=== PATIENT | male | born 1955 | race Caucasian/White ===

== ENCOUNTER 2017-02-02 12:26 | Inpatient (IN) | payer MEDICAID ==
--- NOTE | 2017-02-02 12:01 | GHP ---
[f rep st] HISTORY AND PHYSICAL DATE OF ADMISSION: 02/02/2017 CURRENT COMPLAINT: Right knee pain. HISTORY OF PRESENT ILLNESS: The patient is a 61-year-old male, who 2 months ago had previously under gone a right total knee arthroplasty. Had developed a small stitch abscess that continued to progres s despite antibiotic treatment. He underwent a formal irrigation and debridement on Sunday in [place], [place], was found to have a large hole in his patellar tendon and purulence. He therefore had an i nfected total knee replacement that went down onto the metal. After the formal washout, it was decid ed that he should undergo formal debridement with removal of his prosthesis and placement of cement s pacers. ALLERGIES: He is allergic to penicillin. CURRENT MEDICATIONS: Include allopurinol, cyclobenzaprine, levothyroxine, metformin, pantoprazole, r osuvastatin, sucralfate, tamsulosin. PAST MEDICAL HISTORY: Include BPH, gout, hypothyroidism, high cholesterol, and type 2 diabetes. PAST SURGICAL HISTORY: Include a right total knee replacement with subsequent I and D, as well as a left shoulder lipoma excision, spine surgery, and a right knee arthroscopy. PHYSICAL EXAMINATION: HEENT: Pupils are equal, round, reactive to light. CHEST: Clear to ausculta tion. HEART: Regular rate and rhythm. ABDOMEN: Soft and nontender. EXTREMITIES: Right lower ext remity reveals warmth into the right knee with a sewn incision on the anterior portion of the right k nee. LABORATORY DATA: Lab tests revealed gram-positive rods from his cultures on Sunday with rare gram-po sitive cocci. No cultures and sensitivities are available at this time. ASSESSMENT AND PLAN: The patient is status post right total knee replacement infection. The plan is to take him to the operating room, where he is to undergo a right total knee replacement excision wi placement of cement spacers. /[id number]/MODL
[2017-02-02] MEDS ORDERED: ROPIVACAINE 0.2% 80 MG, EPINEPHrine 0.2 MG, KETOROLAC TROMETHAMINE 30 MG, morphINE 10 M... IU ONE (12:57)
[2017-02-02] MEDS ORDERED: ACETAMINOPHEN 500 MG TAB PO ONE (12:57)
[2017-02-02] MEDS ORDERED: CLINDAMYCIN 900 MG/DEXTROSE 50 ML IV ONE (12:57)
[2017-02-02] MEDS ORDERED: TRANEXAMIC ACID 3,000 MG in NS 50 ML IRR ONE (12:57)
[2017-02-02] MEDS ORDERED: LR 1,000 ML IV SCH ×2 (13:00→18:30)
[2017-02-02] MEDS ORDERED: LR 1,000 ML IV ONE (13:53)
[2017-02-02] MEDS ORDERED: POLYMYXIN B SULFATE 500,000 UNIT/10 ML SYR IRR ONE ×3 (14:20→17:24)
[2017-02-02] MEDS ORDERED: BACITRACIN 50,000 UNITS/10 ML SYR IRR ONE ×3 (14:20→17:24)
[2017-02-02] MEDS ORDERED: MIDAZOLAM 2 MG/2 ML VIAL IVP ONE (14:26)
--- NOTE | 2017-02-02 14:30 | PDANEPAE ---
ANE Past Medical History - Cardiovascular History Hx Hypertension: No Hx Arrhythmias: No Hx Chest Pain: No Hx Coronary Artery / Peripheral Vascular Disease: No Hx CHF / Valvular Disease: No Hx Palpitations: No - Pulmonary History Hx COPD: No Hx Asthma/Reactive Airway Disease: No Hx Recent Upper Respiratory Infection: No Hx Oxygen in Use at Home: No Hx Sleep Apnea: Yes Sleep Apnea Screening Result - Last Documented: Positive - Neurologic History Hx Cerebrovascular Accident: No Hx Seizures: No Hx Dementia: No - Endocrine History Hx Diabetes: Yes Endocrine History Comment: DM - METFORMIN. HYPOTHYROID - LEVOTHYROXINE - Renal History Hx Renal Disorders: No - Liver History Hx Hepatic Disorders: No - Neurological & Psychiatric Hx Hx Neurological and Psychiatric Disorders: No - Cancer History Hx Cancer: No - Congenital Disorder History Hx Congenital Disorders: No - GI History GERD: no Hx Gastrointestinal Disorders: No - Other Health History Other Health History: NEG - Chronic Pain History Chronic Pain: Yes (R KNEE) - Surgical History Prior Surgeries: 10/30/2016 R TKA IN [place]. 01/29/2017 I & D R KNEE IN [place]. LUMBAR SURGERY. LIPOMA L SHOULDER. R KNEE SURG ANE Review of Systems Review of Systems: - Exercise capacity METS (RN): 4 METS ANE Patient History - Allergies Allergies/Adverse Reactions: Penicillins Allergy (Severe, Verified 02/01/17 14:36) SWELLING & DIFF BREATHING - Home Medications Home Medications: Allopurinol [Allopurinol 300 MG (RX)] 300 mg PO BID PRN 02/02/17 [Last Taken Unknown] Cyclobenzaprine [Cyclobenzaprine HCl] 5 mg PO Q6 PRN 02/02/17 [Last Taken Unknown] HYDROmorphone HCL [Dilaudid Inj 2 mg/ml (*)] 2 mg IJ Q4 PRN 02/02/17 [Last Taken Unknown] Levothyroxine Sodium 25 mcg PO DAILY 02/02/17 [Last Taken Unknown] Magnesium Hydroxide [Milk of Magnesia] 30 ml PO DAILY PRN 02/02/17 [Last Taken Unknown] Pantoprazole Sodium [Protonix 40mg (*)] 40 mg PO BID 02/02/17 [Last Taken Unknown] Rosuvastatin Calcium [Crestor] 40 mg PO DAILY 02/02/17 [Last Taken Unknown] Sucralfate [Carafate 1 GM (*)] 1 gm PO ACHS 02/02/17 [Last Taken Unknown] Tamsulosin HCl [Flomax 0.4 MG (*)] 0.4 mg PO DAILY 02/02/17 [Last Taken Unknown] diphenhydrAMINE HCL [Diphen] 50 mg PO Q4 PRN 02/02/17 [Last Taken Unknown] metFORMIN HCL [Metformin HCl ER] 500 mg PO DAILY 02/02/17 [Last Taken Unknown] - NPO status NPO Since - Liquids (Date): 02/02/17 NPO Since - Liquids (Time): 00:00 NPO Since - Solids (Date): 02/02/17 NPO Since - Solids (Time): 00:00 - Anes Hx Anes Hx: no prior problems - Smoking Hx Smoking Status: Never smoked Marijuana use: Yes - Alcohol Use Alcohol Use: None - Family Anes Hx Family Hx Anesthesia Complications: NEG ANE Labs/Vital Signs - Labs Result Diagrams: 02/02/17 14:18 - Vital Signs Blood Pressure: 154/88 Heart Rate: 98 Respiratory Rate: 20 O2 Sat (%): 3 Height: 180.34 cm Weight: 120.202 kg ANE Physical Exam - Airway Neck exam: FROM Mallampati Score: Class 3 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
[2017-02-02 14:43] LABS: ANION GAP 8 mEq/L (8-16); CALCIUM 8.5 mg/dL (8.5-10.4); CARBON DIOXIDE 28 mEq/l (22-31); CHLORIDE 97 mEq/L (97-110); CREATININE 0.7 mg/dL (0.7-1.3); GLOMERULAR FILTRATION RATE > 60; GLUCOSE 92 mg/dL (70-100); POTASSIUM 4.1 mEq/L (3.5-5.2); SODIUM 133 mEq/L (134-144)
[2017-02-02] MEDS ORDERED: BUPIVACAINE/EPI 0.5% 30 ML SDV ONE (14:44)
[2017-02-02] MEDS ORDERED: LIDOCAINE 2% 100 MG/5 ML SYR ONE (14:45)
[2017-02-02] MEDS ORDERED: ROCURONIUM 50 MG/5 ML VIAL ONE (14:45)
[2017-02-02] MEDS ORDERED: fentaNYL 100 MCG/2 ML INJ ONE ×3 (14:45→19:32)
[2017-02-02] MEDS ORDERED: PROPOFOL 200 MG/20 ML VIAL ONE (14:46)
[2017-02-02] MEDS ORDERED: LIDO/EPI 2% **for epidural** 20 ML SDV ONE (14:47)
[2017-02-02] MEDS ORDERED: ONDANSETRON 4 MG/2 ML VIAL ONE ×2 (14:53→18:47)
[2017-02-02] MEDS ORDERED: METHYLENE BLUE 0.5% 50 MG/10 ML AMP ONE (16:04)
[2017-02-02] MEDS ORDERED: NALOXONE HCL 0.4 MG/ML INJ IVP PRN (17:33)
[2017-02-02] MEDS ORDERED: ONDANSETRON 4 MG/2 ML VIAL IVP PRN (17:33)
[2017-02-02] MEDS ORDERED: ENALAPRILAT DIHYDRATE 1.25 MG/ML VIAL IVP PRN (17:33)
[2017-02-02] MEDS ORDERED: LR 500 ML IV PRN (17:33)
[2017-02-02] MEDS ORDERED: PROMETHAZINE HCL 25 MG/ML INJ IVP PRN (17:33)
[2017-02-02] MEDS ORDERED: OXYCODONE/APAP 5/325 TAB PO PRN (17:33)
[2017-02-02] MEDS ORDERED: HYDROCODONE/APAP 5/325 TAB PO PRN (17:33)
[2017-02-02] MEDS ORDERED: HYDROmorphONE/DILAUDID 1 MG/ML INJ IVP PRN (17:33)
[2017-02-02] MEDS ORDERED: MEPERIDINE 25 MG/ML SYR IVP PRN (17:33)
[2017-02-02] MEDS ORDERED: LABETALOL HCL 50 MG/10 ML SYR IVP PRN (17:33)
[2017-02-02] MEDS ORDERED: CYCLOBENZAPRINE 5 MG PO PRN (18:28)
[2017-02-02] MEDS ORDERED: ALLOPURINOL 300 MG TAB PO PRN (18:28)
[2017-02-02] MEDS ORDERED: DIPHENHYDRAMINE HCL 50 MG PO PRN (18:28)
--- NOTE | 2017-02-02 18:28 | POSTOPPROG ---
Post Op Note Date of Operation: 02/02/17 Surgeon: Maru Linder Director Of Marketing: roz Anesthesiologist: silvano Anesthesia: GET(General Endotracheal) Pre-op Diagnosis: r tkr infection Procedure: r tkr removal with spacer placement Inf/Abcess present in the surg proc area at time of surgery?: Yes Depth: Deep Incisional (Fascial) EBL: 100-500
[2017-02-02] MEDS ORDERED: BISACODYL 10 MG SUPP PR PRN (18:29)
[2017-02-02] MEDS ORDERED: MAGNESIUM HYDROXIDE 30 ML UDCUP PO PRN (18:29)
[2017-02-02] MEDS ORDERED: DIPHENOXYLATE/ATROPINE LOMOTIL 1 TAB PO PRN (18:29)
[2017-02-02] MEDS ORDERED: traMADol 50 MG TAB PO PRN (18:29)
[2017-02-02] MEDS ORDERED: PROMETHAZINE HCL 25 MG SUPPR PR PRN (18:29)
[2017-02-02] MEDS ORDERED: diphenhydrAMINE 25 MG CAP PO PRN (18:29)
[2017-02-02] MEDS ORDERED: LACTULOSE 20 GM/30 ML UDCUP PO PRN (18:29)
[2017-02-02] MEDS ORDERED: METOCLOPRAMIDE 10 MG/2 ML VIAL IVP PRN (18:29)
[2017-02-02] MEDS ORDERED: TAPENTADOL HCL 50 MG TAB PO PRN (18:29)
--- NOTE | 2017-02-02 18:40 | POSTANESTH ---
Post Anesthetic Evaluation Cardiovascular Status: Similar to Pre-Op Cond Respiratory Status: Similar to Pre-op Cond. Level of Consciousness/Mental Status: Can Participate in Eval, Alert and Oriented Pain Control: Adequate, Prn Tx Ordered Nausea/Vomiting Control: Adequate, Prn Tx Ordered Complications Possibly Related to Anesthesia: None Noted
[2017-02-02] MEDS ORDERED: METOCLOPRAMIDE 10 MG/2 ML VIAL ONE ×2 (18:47→19:18)
[2017-02-02] MEDS ORDERED: PROMETHAZINE HCL 25 MG/ML INJ ONE (19:24)
[2017-02-02] MEDS: fentaNYL 100 MCG/2 ML INJ IVP PRN ×2 (19:32→19:57)
--- NOTE | 2017-02-02 20:03 | GOP ---
[f rep st] OPERATIVE REPORT DATE OF OPERATION: 02/02/2017 SURGEON: Maru Linder MD SPOOL FIXER: Latrell Ang, certified P.A., whose presence was medically necessary. ANESTHESIA: Endotracheal intubation. PREOPERATIVE DIAGNOSIS: Right total knee replacement infection. POSTOPERATIVE DIAGNOSIS: Right total knee replacement infection. PROCEDURE PERFORMED: Right total knee replacement removal with placement of antibiotic cement spacer s. FINDINGS: DESCRIPTION OF PROCEDURE: Patient brought to the operating room after the right side had been identi fied as the correct side by the patient, nurse and physician. Once in the operating room, he was enedelia paty under general anesthesia using endotracheal intubation after an adductor nerve block had been enedelia paty. A tourniquet was placed around the upper portion of the right thigh, and the sutures in the ski n were removed from the knee. The right lower extremity was then sterilely prepped and draped in usu al fashion using GSI solution. Once prepped and draped, the leg was elevated for 2 minutes, the tour niquet was inflated to 250 mmHg. Sharp and blunt dissection was carried down through the skin and subcutaneous layers with the sutures cut, allowing the tissue to open up. The same was performed for the extensor mechanism. The incisi on was carried more proximally in order to gain further access to the lateral portion of the knee. A n ultrasonic knife was used to remove cement from the undersurface of the femoral component, as well as using a flexible osteotome. Once an adequate amount had been removed, the femoral component was a ble to be removed. The remainder of the cement against the bone was also removed using a combination of rongeur and pickups. Attention was then turned to the tibia, which also had the cement mantle re moved using ultrasonic knife and flexible osteotomes until the tibial component could be removed. Ag ain, excess cement was removed using combination of rongeur and pickups. Both the femur and the tibia were each irrigated thoroughly with pulsatile lavage using 1 L of antibi otic solution for each of them. Trial spacers were put into place, noted to fit securely. Therefore , cement was mixed with methylene blue added to it, in order to aid in its removal at his next surger y. Cement was placed on the proximal portion of the tibia and a size large cement tibial spacer was put into place. Cement was then placed on the end of the femur, and a size large cement spacer was p laced on the femoral component. The knee was brought to full extension in order to pressurize the ce ment mantle. Yet another liter of antibiotic solution was used to irrigate the medial and lateral gu tter and the soft tissue associated with the knee using pulsatile lavage. Once completed, the tourniquet was deflated at 90 minutes. The leg was brought to 20 degrees of flex ion. An 0 Vicryl suture was used to close the extensor mechanisms using a hkvqpu-uf-lwrtl type stitc h with the hole in the patellar tendon also closed using a vlyrqe-or-uwiym type stitch. Then, 0 Vicr yl and 2-0 Vicryl suture were used for the subcutaneous layers. Tranexamic acid had been irrigated i nto the intra-articular portion of the knee, and the skin was closed using 2-0 nylon suture in a vert ical mattress type stitch. The wound was dressed with Xeroform, 4 x 4, wrapped in Kerlix. Leg was c ompletely undraped in the operating room, tourniquet removed from the thigh, and an Ramana wrap placed a round the knee. He had a knee immobilizer locked at 0 degrees placed on his right lower extremity. He was then woken up, extubated, transferred onto a stretcher, and sent to recovery room in [facility]. TOURNIQUET TIME: 90 minutes. INDICATION FOR SURGERY: A 61-year-old male, who 2 months ago had undergone a right total knee arthro plasty. A month out from surgery, he appeared to have a small stitch that was spitting out from the wound. He was placed on antibiotics. Two weeks later, antibiotics were changed to Levaquin because he had persistent drainage from the area. A week after that, it was decided that he should undergo a n irrigation and debridement once an orthopaedic surgeon was available in [place], [place], which was t his past Sunday; at which point, he underwent a formal irrigation and debridement, was found to have a sinus tract that led from that small skin wound through the patellar tendon and into the intra-aliza cular portion of the knee. Multiple culture samples were taken from the knee and were sent to [facility] in [place], [place]. He was therefore transferred to [facility] within several day s to undergo a formal irrigation and debridement, with removal of his components and placement of taryn ent spacers. /[id number]/MODL
[2017-02-02] MEDS ORDERED: CYCLOBENZAPRINE 10 MG TAB PO PRN (20:22)
[2017-02-02] MEDS ORDERED: diphenhydrAMINE 50 MG CAP PO PRN (20:23)
[2017-02-02] MEDS: CYCLOBENZAPRINE 10 MG TAB PO PRN (20:36)
[2017-02-02] MEDS: oxyCODONE IR 5 MG TAB PO PRN ×2 (20:36→23:51)
[2017-02-02] MEDS: SENNOSIDES/DOCUSATE SODIUM TAB PO SCH (20:36)
[2017-02-02] MEDS: FAMOTIDINE 20 MG TAB PO SCH (20:37)
[2017-02-02] MEDS: PANTOPRAZOLE SODIUM 40 MG TAB PO SCH (20:37)
[2017-02-02] MEDS: SUCRALFATE 1 GM TAB PO SCH (21:06)
[2017-02-02] MEDS: VANCOMYCIN 1.5 GM in D5W 250 ML IV SCH (21:08)
[2017-02-02] MEDS: ACETAMINOPHEN 325 MG TAB PO SCH (23:51)
[2017-02-03] MEDS: oxyCODONE IR 5 MG TAB PO PRN ×7 (03:56→23:39)
[2017-02-03 04:15] LABS: HEMATOCRIT 27.1 % (40.0-51.0); HEMOGLOBIN 8.8 g/dL (13.7-17.5); MEAN CELL HEMOGLOBIN 27.6 pg (27.9-34.1); MEAN CELL HEMOGLOBIN CONCENTR. 32.5 g/dL (32.4-36.7); RED BLOOD CELL COUNT 3.19 10^6/uL (4.40-6.38); RED CELL DISTRIBUTION WIDTH 14.4 % (11.5-15.2)
[2017-02-03] MEDS: CYCLOBENZAPRINE 10 MG TAB PO PRN ×2 (05:40→16:55)
[2017-02-03] MEDS: ACETAMINOPHEN 325 MG TAB PO SCH ×4 (05:40→23:35)
[2017-02-03] MEDS: SUCRALFATE 1 GM TAB PO SCH ×4 (07:46→21:00)
[2017-02-03] MEDS ORDERED: METFORMIN HCL 500 MG PO SCH (09:00)
[2017-02-03] MEDS: LEVOTHYROXINE 25 MCG TAB PO SCH (09:05)
[2017-02-03] MEDS: PANTOPRAZOLE SODIUM 40 MG TAB PO SCH ×2 (09:06→21:00)
[2017-02-03] MEDS: SENNOSIDES/DOCUSATE SODIUM TAB PO SCH ×2 (09:06→21:00)
[2017-02-03] MEDS: TAMSULOSIN HCL 0.4 MG CAP PO SCH (09:06)
[2017-02-03] MEDS: metFORMIN SR 500 MG TAB PO SCH (09:06)
[2017-02-03] MEDS: FAMOTIDINE 20 MG TAB PO SCH ×2 (09:06→21:00)
[2017-02-03] MEDS: ROSUVASTATIN CALCIUM 10 MG TAB PO SCH (09:08)
[2017-02-03] MEDS: VANCOMYCIN 1.5 GM in D5W 250 ML IV SCH (09:09)
[2017-02-03] MEDS: ENOXAPARIN 40 MG/0.4 ML SYR SC SCH (09:12)
--- NOTE | 2017-02-03 14:14 | SOAPPROG ---
SOAP Progress Note Assessment/Plan: Assessment: Plan: Subjective: states he's doing better with pain meds and has been OOB dressing C&D with foot NVI with brace in place cont brace and abx await ID input Objective: Vital Signs Temp Pulse Resp BP Pulse Ox 36.8 C 105 H 18 120/79 97 02/03/17 11:13 02/03/17 11:13 02/03/17 11:13 02/03/17 11:13 02/03/17 11:13 Laboratory Results 02/03/17 04:00 02/02/17 14:18 02/02/17 02/03/17 02/04/17 05:59 05:59 05:59 Intake Total 1272 Output Total 425 1200 Balance 847 -1200 ICD10 Worksheet Patient Problems: Problems Problem Status Onset Infection of implant Acute - ICD10 Problem Qualifiers (1) Infection of implant
[2017-02-03] MEDS: VANCOMYCIN 1.25 GM in D5W 250 ML IV SCH (17:57)
--- NOTE | 2017-02-03 19:02 | GCON ---
[f rep st] CONSULTATION INPATIENT INFECTIOUS DISEASE CONSULTATION REFERRING PHYSICIAN: Maru Linder MD REASON FOR CONSULTATION: Right knee prosthetic joint infection. HISTORY OF PRESENT ILLNESS: The patient is a 61-year-old male, who had a right knee replacement in [facility]. After this knee replacement, he developed a small abscess on the anterior aspect of the knee th at was presumed to be a suture abscess. This continued to progress despite antibiotic therapy. He u nderwent debridement with washout on Sunday at his home in [place], [place], and was found to have a hol e in his patellar tendon and purulence emanating from it. Samples were taken, and the prosthetic anam nt was washed out, but he was scheduled to come up to [facility] to undergo two-stage r emoval of prosthesis and exchange. The first stage happened yesterday. He was prophylaxed with IV v ancomycin and remains currently on IV vancomycin. The patient does have a history of a penicillin al lergy. His throat closed when he was younger. PAST MEDICAL HISTORY: 1. Benign prostatic hypertrophy. 2. Hypothyroidism. 3. Hypercholesterolemia. 4. Type 2 diabetes. 5. Gout. PAST SURGICAL HISTORY: 1. Status post right total knee replacement. 2. Status post irrigation and debridement of that right knee. 3. Status post left shoulder lipoma excision. 4. Status post right knee arthroscopy. 5. Status post spine surgery. MEDICATIONS: Antibiotics: Vancomycin perioperatively. ALLERGIES: The patient is allergic to penicillin, causes throat closure. SOCIAL HISTORY: The patient is . He lives out in [place], [place]. No significant tobacco alco hol or drug use noted. FAMILY HISTORY: Reviewed, but noncontributory. REVIEW OF SYSTEMS: Other than that detailed above in the history of present illness, comprehensive 1 0-system review is negative. PHYSICAL EXAMINATION: VITAL SIGNS: Temperature maximum is 37.2, temperature current is 36.4, heart rate is 90, respiratory rate is 18, blood pressure is 110/73. GENERAL: The patient is a well-formed , well-nourished male, in no acute distress. He is nontoxic in appearance. He is alert and oriented x3. He is in a pleasant demeanor. HEENT: Normocephalic for age. Atraumatic. No scleral icterus. No oral lesion or drainage from the nares. Eyes, lids, and conjunctivae are within normal limits. Pupils are equal and round bilaterally. NECK: Supple. No meningismus. LUNGS: Clear to auscultat ion bilaterally with good effort. HEART: Regular rate and rhythm. No murmur, rub, or gallop noted. SKIN: Warm and dry to the touch. No rash noted. The patient does have surgical incision right kn ee. This is braced. No proximal erythema noted. MUSCULOSKELETAL: No muscle belly tenderness is no jose cruz. Right knee joint is postoperative. Otherwise, no joint enlargement, effusion, or arthritis is seen. NEURO: Cranial nerves 2-12 seem to be intact. Peripheral sensation seems intact in extremiti es. LABORATORY DATA: The patient has a CBC dated 02/03/2017, shows a white blood cell count of 10.1, hem oglobin of 8.8, hematocrit of 27.1, and platelet count of 349. Serum chemistries on 02/02/2017, show sodium 133, potassium 4.1, chloride of 97, bicarbonate of 28, BUN of 9, and creatinine 0.7. MICROBIOLOGIC DATA: The patient has no micro samples done here. Reportedly, the samples in [place] [facility] have gram-positive cocci on the Gram stain. Cultures are pending. ASSESSMENT: Right knee prosthetic joint infection. Probably skin dank given the report of gram-pos itive cocci on the Gram stain. Plan to continue vancomycin as empiric therapy. We will adjust based on culture results. The patient will need a 6 week course from spacer placement yesterday. PLAN: 1. Continue with monotherapy with vancomycin. 2. Follow culture data from [facility]. 3. Plan for 6 weeks duration of treatment. /[id number]/MODL
[2017-02-03] MEDS: TEMAZEPAM 15 MG CAP PO PRN (21:00)
[2017-02-04] MEDS: oxyCODONE IR 5 MG TAB PO PRN ×6 (03:55→20:55)
[2017-02-04] MEDS: CYCLOBENZAPRINE 10 MG TAB PO PRN ×2 (03:55→17:42)
[2017-02-04] MEDS: ACETAMINOPHEN 325 MG TAB PO SCH ×3 (05:37→17:37)
[2017-02-04] MEDS: VANCOMYCIN 1.25 GM in D5W 250 ML IV SCH ×2 (05:39→17:37)
[2017-02-04] MEDS: SUCRALFATE 1 GM TAB PO SCH ×4 (07:28→20:55)
[2017-02-04] MEDS: ENOXAPARIN 40 MG/0.4 ML SYR SC SCH (08:37)
[2017-02-04] MEDS: POLYETHYLENE GLYCOL 3350 17 GM PKT PO PRN ×2 (08:40→20:55)
[2017-02-04] MEDS: FAMOTIDINE 20 MG TAB PO SCH ×2 (08:41→20:56)
[2017-02-04] MEDS: PANTOPRAZOLE SODIUM 40 MG TAB PO SCH ×2 (08:41→20:55)
[2017-02-04] MEDS: SENNOSIDES/DOCUSATE SODIUM TAB PO SCH ×2 (08:41→20:55)
[2017-02-04] MEDS: LEVOTHYROXINE 25 MCG TAB PO SCH (08:42)
[2017-02-04] MEDS: ROSUVASTATIN CALCIUM 10 MG TAB PO SCH (08:42)
[2017-02-04] MEDS: TAMSULOSIN HCL 0.4 MG CAP PO SCH (08:42)
[2017-02-04] MEDS: metFORMIN SR 500 MG TAB PO SCH (08:42)
--- NOTE | 2017-02-04 12:34 | SOAPPROG ---
SOAP Progress Note Assessment/Plan: Assessment: Plan: Subjective: states he's doig well dressing with serosang drainage cont PT and Abx Objective: Vital Signs Temp Pulse Resp BP Pulse Ox 36.7 C 97 18 130/78 H 98 02/04/17 11:32 02/04/17 11:32 02/04/17 11:32 02/04/17 11:32 02/04/17 11:32 Laboratory Results 02/03/17 04:00 02/02/17 14:18 02/03/17 02/04/17 02/05/17 05:59 05:59 05:59 Intake Total 1272 2365 Output Total 425 2375 Balance 847 -10 ICD10 Worksheet Patient Problems: Problems Problem Status Onset Infection of implant Acute - ICD10 Problem Qualifiers (1) Infection of implant
[2017-02-04] MEDS ORDERED: PNEUMOCOCCAL 0.5ML VACCINE VIAL IM ONE (13:58)
[2017-02-04] MEDS ORDERED: FLU VACC QS 2017-18 (3YR+)/PF 0.5 ML SYR (FLUARIX QUAD) IM ONE (13:58)
--- NOTE | 2017-02-04 14:33 | ASMTCMCOM ---
CM Note CM Note Notes: Pt here for removal of infected prosthesis (after knee repalcement in November 2016), will need 6 weeks IV ABX's- d/w Dr Gu. Pt lives at home in one apt with , Marina. PT recommending SNF as of yesterday. d/W pt and . Pt would much prefer to dc home; he feels he would do much better at home ( agrees), has good support of although she does work 4d/wk til 2:30 but he says he has other people around he can call if needed (neighbor and brother). They are open to [facility] and are willing to learn to administer IV ABX. Referral faxed to [facility] and spoke to Miguelina who said they are able to deliver to his area. Pt lives in [place], [place]- closest larger town is [place] or [facility] (80 miles away). Referral also sent to [facility] (out of [place])and vm left to see if they could go to that area. Pt would need [facility] RN, PT most likely. NEHEMIAS w/f. Date Signed: 02/04/2017 02:32 PM Electronically Signed By:Luisa Del Cid, RN
--- NOTE | 2017-02-04 16:13 | PCMIDPN ---
Assessment/Plan: Assessment: Right knee prosthetic joint infection-culture from [facility] with Gram-positive rods in culture. No identification yet. Will continue IV vancomycin. Vancomycin trough is 8.5. Will continue at present dose. Plan a 6 week total treatment course. Arrangement for home IV antibiotics begins tomorrow. Plan: 1. Continue IV vancomycin at present dose. 2. Follow up on culture data. 3. Follow appearance of the right knee. Subjective: Patient resting in his room with no significant complaint postoperative pain in the right knee is still present but slightly better. No fevers or chills. Objective: Vancomycin # 2 Vital Signs Temp Pulse Resp BP Pulse Ox 37.3 C 97 18 134/75 H 92 02/04/17 15:52 02/04/17 15:52 02/04/17 15:52 02/04/17 15:52 02/04/17 15:52 Laboratory Results 02/03/17 04:00 02/02/17 14:18 02/03/17 02/04/17 02/05/17 05:59 05:59 05:59 Intake Total 1272 2365 250 Output Total 425 2375 Balance 847 -10 250 - Physical Exam General Appearance: WD/WN, alert, no apparent distress, non-toxic Respiratory: lungs clear, normal breath sounds, No respiratory distress Cardiac/Chest: regular rate, rhythm, No tachycardia Extremities: No non-tender, No normal inspection, No erythema Skin: normal color, warm/dry, No rash Neuro/Psych: alert, normal mood/affect, oriented x 3 ICD10 Worksheet Patient Problems: Problems Problem Status Onset Infection of implant Acute
[2017-02-04] MEDS: TEMAZEPAM 15 MG CAP PO PRN (20:55)
[2017-02-05] MEDS: oxyCODONE IR 5 MG TAB PO PRN ×6 (00:21→21:17)
[2017-02-05] MEDS: ACETAMINOPHEN 325 MG TAB PO SCH ×4 (00:21→17:43)
[2017-02-05] MEDS: VANCOMYCIN 1.25 GM in D5W 250 ML IV SCH (05:01)
[2017-02-05] MEDS: CYCLOBENZAPRINE 10 MG TAB PO PRN ×2 (05:03→14:00)
[2017-02-05] MEDS: SUCRALFATE 1 GM TAB PO SCH ×4 (07:51→21:33)
[2017-02-05] MEDS: metFORMIN SR 500 MG TAB PO SCH (08:35)
[2017-02-05] MEDS: SENNOSIDES/DOCUSATE SODIUM TAB PO SCH ×2 (08:35→21:33)
[2017-02-05] MEDS: ROSUVASTATIN CALCIUM 10 MG TAB PO SCH (08:35)
[2017-02-05] MEDS: FAMOTIDINE 20 MG TAB PO SCH ×2 (08:35→21:17)
[2017-02-05] MEDS: LEVOTHYROXINE 25 MCG TAB PO SCH (08:35)
[2017-02-05] MEDS: ENOXAPARIN 40 MG/0.4 ML SYR SC SCH (08:36)
[2017-02-05] MEDS: PANTOPRAZOLE SODIUM 40 MG TAB PO SCH ×2 (08:36→21:17)
[2017-02-05] MEDS: TAMSULOSIN HCL 0.4 MG CAP PO SCH (08:36)
--- NOTE | 2017-02-05 10:21 | ASMTCMCOM ---
CM Note CM Note Notes: [facility] Of note: No other HHC services area: [facility] and [facility] do not service [place]. Date Signed: 02/05/2017 10:20 AM Electronically Signed By:BEV Pruitt
--- NOTE | 2017-02-05 11:59 | SOAPPROG ---
SOAP Progress Note Assessment/Plan: Assessment: Plan: - will likely d/c tomorrow - home O2 order is done for hypoxia - dressing changed 02/05/17 11:58 Subjective: Pain controlled with oral oxycodone, Objective: Vital Signs Temp Pulse Resp BP Pulse Ox 36.9 C 101 H 16 130/85 H 96 02/05/17 11:26 02/05/17 11:26 02/05/17 11:26 02/05/17 11:26 02/05/17 11:26 Laboratory Results 02/03/17 04:00 02/02/17 14:18 02/04/17 02/05/17 02/06/17 05:59 05:59 05:59 Intake Total 2365 1984 Output Total 2375 1350 875 Balance -10 534 -425 Wound CDI, bloody dressing but no active bleeding today, swelling and erythema improved, calf is NT, neg Homman's, NVI distally - Time Spent With Patient Time Spent With Patient: 20 - Pending Discharge Pending Discharge Within 24 Hours: No Pending Discharge Within 48 Hours: Yes Pending Discharge Date: 02/07/17 Pending Discharge Time: 11:00 ICD10 Worksheet Patient Problems: Problems Problem Status Onset Infection of implant Acute
--- NOTE | 2017-02-05 17:05 | PDFACE2FAC ---
Face to Face Encounter 1. I certify that this patient is under my care and that I, or a nurse practitioner or physician's engineer second assistant working with me, had a [id number] encounter that meets the physician [id number] encounter requirements with this patient on 02/05/17. 2. I certify that based on my findings, the following services are medically necessary home health services: [X Nursing] [X Physical Therapy] [X Speech-Language Pathology] o2 home 3. The medical condition and clinical findings that support the need for specialized skills, knowledge and judgement of the above services are: [low sat under75] 4. I certify this patient is homebound* because [the patient's condition restricts their ability to leave their home except with the assistance of another individual or the aid of a supportive device.] neftaly courtney I certify that this patient is confined to his/her home and needs intermittent [facility] care, physical and/or speech therapy. This patient is under my care and I have authorized home health services. * Homebound is defined by Medicare as follows: absences from home require considerable and tacking effort and or for medical reasons or evangelical services or are infrequent or of short duration when for other reasons*.
--- NOTE | 2017-02-05 17:06 | PDIAF ---
- Diagnosis Code Status: Full Code - Medication Management Discharge Medications: Medications to Continue on Transfer Allopurinol [Allopurinol 300 MG (RX)] 300 mg PO BID PRN 02/02/17 [Last Taken Unknown] Cyclobenzaprine [Cyclobenzaprine HCl] 5 mg PO Q6 PRN 02/02/17 [Last Taken Unknown] HYDROmorphone HCL [Dilaudid Inj 2 mg/ml (*)] 2 mg IJ Q4 PRN 02/02/17 [Last Taken Unknown] Levothyroxine Sodium 25 mcg PO DAILY 02/02/17 [Last Taken Unknown] Magnesium Hydroxide [Milk of Magnesia] 30 ml PO DAILY PRN 02/02/17 [Last Taken Unknown] Pantoprazole Sodium [Protonix 40mg (*)] 40 mg PO BID 02/02/17 [Last Taken Unknown] Rosuvastatin Calcium [Crestor] 40 mg PO DAILY 02/02/17 [Last Taken Unknown] Sucralfate [Carafate 1 GM (*)] 1 gm PO ACHS 02/02/17 [Last Taken Unknown] Tamsulosin HCl [Flomax 0.4 MG (*)] 0.4 mg PO DAILY 02/02/17 [Last Taken Unknown] diphenhydrAMINE HCL [Diphen] 50 mg PO Q4 PRN 02/02/17 [Last Taken Unknown] metFORMIN HCL [Metformin HCl ER] 500 mg PO DAILY 02/02/17 [Last Taken Unknown] Discharge Medications: Refer to the Discharge Home Medication list for PRN reason. PICC Care - Routine: Yes - Orders Oxygen: yes - low sat under 75 ra Diet Recommendation: no restrictions on diet Diet Texture: Regular Texture Diet Rico: Not applicable - Follow Up Care Current Providers and Referrals: Chiara Patino [Primary Care Provider] -
--- NOTE | 2017-02-05 17:07 | PDHOMEO2F ---
Home Oxygen Face to Face Home Orders: I certify that a physician or a nurse practitioner or physician's sourcing assistant has had a [id number] encounter with this patient on the date of this order due to the diagnosis listed, which relates to the primary reason the patient requires home oxygen. Alternative treatments have been tried, or considered, and deemed ineffective. It is anticipated that supplemental oxygen will result in improvement with treatment. Home oxygen qualifying diagnosis: hypoxia SpO2 on room air (%): 77 Frequency of home oxygen needed: continuous Home oxygen liters per minute: 2 Home oxygen delivery device: nasal cannula Concentrator: No E-tanks for mobility and back up: Yes If ordering portable O2, is the patient mobile in the home?: Yes I certify that, based on these findings, the home oxygen is medically necessary for this patient for the following length of time. Length of time home oxygen needed: 1 month
[2017-02-05] MEDS: NS IV SCH (17:43)
[2017-02-05] MEDS: DAPTOMYCIN IV SCH (17:43)
--- NOTE | 2017-02-05 18:38 | PCMIDPN ---
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 GPCs noted on initial Gram stain and then comment that gram-positive pardeep growing. Culture was subsequently referred to [facility] in [facility] - I spoke with lab there today and no growth has been noted on cultures. [facility] will fax me further culture findings. Will need 6 weeks of IV antibiotic therapy. Will change vancomycin to daptomycin to avoid potential for nephrotoxicity. Hold statin while on daptomycin which was explained to patient today. Obtain baseline CPK. Risks and benefits of PICC line and daptomycin discussed with patient including potential for hypersensitivity pneumonitis or myositis. Will follow up additional culture data as outlined above. 02/05/17 18:34 02/05/17 18:50 Subjective: Patient feels better with less knee pain. Objective: Vital Signs Temp Pulse Resp BP Pulse Ox 36.4 C 94 18 124/89 H 95 02/05/17 15:37 02/05/17 15:37 02/05/17 15:37 02/05/17 15:37 02/05/17 15:37 Laboratory Results 02/03/17 04:00 02/02/17 14:18 02/04/17 02/05/17 02/06/17 05:59 05:59 05:59 Intake Total 2365 1984 750 Output Total 2375 1350 1625 Balance -10 704 -614 Vancomycin # 3 Cultures from [facility] which were referred to [facility] no growth Laboratory Tests 02/04/17 04:00 Vancomycin Trough 8.5 - Physical Exam General Appearance: alert, no apparent distress EENT: No scleral icterus, No conjunctival petechiae Cardiac/Chest: regular rate, rhythm Extremities: other (Right knee dressed postoperatively) Abdomen: non-tender, No distended - Line/s RUE PICC Lines: No drainage, No erythema ICD10 Worksheet Patient Problems: Problems Problem Status Onset Infection of implant Acute
[2017-02-05] MEDS: TEMAZEPAM 15 MG CAP PO PRN (21:34)
[2017-02-06] MEDS: oxyCODONE IR 5 MG TAB PO PRN ×5 (01:38→15:45)
[2017-02-06] MEDS: ACETAMINOPHEN 325 MG TAB PO SCH ×3 (03:01→11:47)
[2017-02-06 04:27] LABS: % IMMATURE GRANULYOCYTES 0.3 % (0.0-1.1); ABSOLUTE IMMATURE GRANULOCYTES 0.03 10^3/uL (0.00-0.10); ADD DIFF? NO; ADD MORPH? NO; ADD SCAN? NO; ATYPICAL LYMPHOCYTE FLAG 0 (0-99); FRAGMENT RBC FLAG 0 (0-99); HEMOGLOBIN 8.5 g/dL (13.7-17.5); LEFT SHIFT FLG 0 (0-99); LIPEMIA HEMOLYSIS FLAG 80 (0-99); MEAN CELL HEMOGLOBIN 26.8 pg (27.9-34.1); MEAN CELL HEMOGLOBIN CONCENTR. 31.5 g/dL (32.4-36.7); MEAN CELL VOLUME 85.2 fL (81.5-99.8); MEAN PLATELET VOLUME 8.3 fL (8.7-11.7); PLATELET CLUMPS FLAG 0 (0-99); PLATELET COUNT 377 10^3/uL (150-400); RED BLOOD CELL COUNT 3.17 10^6/uL (4.40-6.38); RED CELL DISTRIBUTION WIDTH 14.5 % (11.5-15.2)
[2017-02-06 04:46] LABS: ALANINE AMINOTRANSFERASE 43 IU/L (21-72); ALBUMIN 2.8 g/dL (3.5-5.0); ALKALINE PHOSPHATASE 100 IU/L (38-126); ANION GAP 7 mEq/L (8-16); ASPARTATE AMINOTRANSFERASE 26 IU/L (17-59); BILIRUBIN,TOTAL 0.3 mg/dL (0.1-1.4); C-REACTIVE PROTEIN 73.9 mg/L (<10.0); CALCIUM 8.3 mg/dL (8.5-10.4); CARBON DIOXIDE 31 mEq/l (22-31); CHLORIDE 94 mEq/L (97-110); CREATININE 0.7 mg/dL (0.7-1.3); GLOMERULAR FILTRATION RATE > 60; GLUCOSE 110 mg/dL (70-100); POTASSIUM 4.2 mEq/L (3.5-5.2); SODIUM 132 mEq/L (134-144); TOTAL PROTEIN 5.5 g/dL (6.3-8.2)
[2017-02-06 07:13] VITALS: RESP 18; TEMP 98.5
[2017-02-06] MEDS: SUCRALFATE 1 GM TAB PO SCH ×2 (08:18→11:47)
[2017-02-06] MEDS: ENOXAPARIN 40 MG/0.4 ML SYR SC SCH (08:18)
[2017-02-06] MEDS: SENNOSIDES/DOCUSATE SODIUM TAB PO SCH (08:19)
[2017-02-06] MEDS: metFORMIN SR 500 MG TAB PO SCH (08:19)
[2017-02-06] MEDS: TAMSULOSIN HCL 0.4 MG CAP PO SCH (08:19)
[2017-02-06] MEDS: LEVOTHYROXINE 25 MCG TAB PO SCH (08:19)
[2017-02-06] MEDS: FAMOTIDINE 20 MG TAB PO SCH (08:20)
[2017-02-06] MEDS: PANTOPRAZOLE SODIUM 40 MG TAB PO SCH (08:20)
[2017-02-06] MEDS: DAPTOMYCIN IV SCH (08:52)
[2017-02-06] MEDS: NS IV SCH (08:52)
--- NOTE | 2017-02-06 10:20 | PDIAF ---
- Diagnosis Diagnosis: Septic right TKA Code Status: Full Code - Medication Management Discharge Medications: Medications to Continue on Transfer Allopurinol [Allopurinol 300 MG (RX)] 300 mg PO BID PRN 02/02/17 [Last Taken Unknown] Cyclobenzaprine [Cyclobenzaprine HCl] 5 mg PO Q6 PRN 02/02/17 [Last Taken Unknown] HYDROmorphone HCL [Dilaudid Inj 2 mg/ml (*)] 2 mg IJ Q4 PRN 02/02/17 [Last Taken Unknown] Levothyroxine Sodium 25 mcg PO DAILY 02/02/17 [Last Taken Unknown] Magnesium Hydroxide [Milk of Magnesia] 30 ml PO DAILY PRN 02/02/17 [Last Taken Unknown] Pantoprazole Sodium [Protonix 40mg (*)] 40 mg PO BID 02/02/17 [Last Taken Unknown] Rosuvastatin Calcium [Crestor] 40 mg PO DAILY 02/02/17 [Last Taken Unknown] Sucralfate [Carafate 1 GM (*)] 1 gm PO ACHS 02/02/17 [Last Taken Unknown] Tamsulosin HCl [Flomax 0.4 MG (*)] 0.4 mg PO DAILY 02/02/17 [Last Taken Unknown] diphenhydrAMINE HCL [Diphen] 50 mg PO Q4 PRN 02/02/17 [Last Taken Unknown] metFORMIN HCL [Metformin HCl ER] 500 mg PO DAILY 02/02/17 [Last Taken Unknown] 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 PICC Care - Routine: Yes - Orders Services needed: Home Jail Care Face to Face: I certify that this patient was under my care and that I had the required [id number] encounter meeting the encounter requirements on the discharge day. My findings support the fact that the patient is homebound as defined in Home Care Face to Face Continued: CMS Chapter 7 Medicare Benefits Manual 30.1.1 , The condition of the patient is such that there exists a normal inability to leave home and consequently, leaving home would require a considerable and taxing effort. Oxygen: yes - low sat under 75 ra Diet Recommendation: no restrictions on diet Diet Texture: Regular Texture Diet Rico: Not applicable - Labs/Radiology CBC Date: 02/08/17 (Weekly Q ) CMP Date: 02/08/17 (Weekly Q ) CPK Date: 02/08/17 (Weekly Q ) Call or Fax Lab and Imaging Results to: Dr. Gu [phone] - Follow Up Care Current Providers and Referrals: Chiara Patino [Primary Care Provider] - Gavin Gu MD [Medical Doctor] - 02/14/17 2:30 pm
[2017-02-06 11:36] VITALS: BP 142/84; PULSE 102; O2SAT 94
--- NOTE | 2017-02-06 12:15 | SOAPPROG ---
SOAP Progress Note Assessment/Plan: Assessment: Plan: - d/c to home 02/05/17 11:58 02/06/17 12:15 Subjective: No issues Objective: Vital Signs Temp Pulse Resp BP Pulse Ox 36.9 C 102 H 18 142/84 H 94 02/06/17 11:35 02/06/17 11:35 02/06/17 11:35 02/06/17 11:35 02/06/17 11:35 Laboratory Results 02/06/17 04:15 02/06/17 04:15 02/05/17 02/06/17 02/07/17 05:59 05:59 05:59 Intake Total 1984 750 Output Total 1350 9077 725 Balance 276 -[phone] -003 Dressing CDI, neg for DVT, NVI - Time Spent With Patient Time Spent With Patient: 15a - Pending Discharge Pending Discharge Within 24 Hours: Yes Pending Discharge Within 48 Hours: No Pending Discharge Date: 02/07/17 Pending Discharge Time: 11:00 ICD10 Worksheet Patient Problems: Problems Problem Status Onset Infection of implant Acute
--- NOTE | 2017-02-06 12:27 | PDIAF ---
- Diagnosis Diagnosis: Septic right TKA Code Status: Full Code - Medication Management Discharge Medications: Medications to Continue on Transfer Allopurinol [Allopurinol 300 MG (RX)] 300 mg PO BID PRN 02/02/17 [Last Taken Unknown] Cyclobenzaprine [Cyclobenzaprine HCl] 5 mg PO Q6 PRN 02/02/17 [Last Taken Unknown] HYDROmorphone HCL [Dilaudid Inj 2 mg/ml (*)] 2 mg IJ Q4 PRN 02/02/17 [Last Taken Unknown] Levothyroxine Sodium 25 mcg PO DAILY 02/02/17 [Last Taken Unknown] Magnesium Hydroxide [Milk of Magnesia] 30 ml PO DAILY PRN 02/02/17 [Last Taken Unknown] Pantoprazole Sodium [Protonix 40mg (*)] 40 mg PO BID 02/02/17 [Last Taken Unknown] Rosuvastatin Calcium [Crestor] 40 mg PO DAILY 02/02/17 [Last Taken Unknown] Sucralfate [Carafate 1 GM (*)] 1 gm PO ACHS 02/02/17 [Last Taken Unknown] Tamsulosin HCl [Flomax 0.4 MG (*)] 0.4 mg PO DAILY 02/02/17 [Last Taken Unknown] diphenhydrAMINE HCL [Diphen] 50 mg PO Q4 PRN 02/02/17 [Last Taken Unknown] metFORMIN HCL [Metformin HCl ER] 500 mg PO DAILY 02/02/17 [Last Taken Unknown] Cyclobenzaprine [Flexeril 10 MG (*)] 10 mg PO Q8HRS PRN #0 tab 02/06/17 [Last Taken Unknown] Enoxaparin [Lovenox 40 MG (*)] 40 mg SC DAILY #14 syr 02/06/17 [Last Taken Unknown] oxyCODONE IR [Oxycodone Ir (*)] 5 - 10 mg PO Q3HRS PRN #0 tab 02/06/17 [Last Taken Unknown] Intermediate Antibiotics: Daptomycin 720 mg IV q 24 hours Filbert Grower Antibiotic Stop Date: 03/16/17 Discharge Medications: Refer to the Discharge Home Medication list for PRN reason. PICC Care - Routine: Yes - Orders Services needed: Home Alf Care Face to Face: I certify that this patient was under my care and that I had the required [id number] encounter meeting the encounter requirements on the discharge day. My findings support the fact that the patient is homebound as defined in Home Care Face to Face Continued: CMS Chapter 7 Medicare Benefits Manual 30.1.1 , The condition of the patient is such that there exists a normal inability to leave home and consequently, leaving home would require a considerable and taxing effort. Oxygen: yes - low sat under 75 ra Diet Recommendation: no restrictions on diet Diet Texture: Regular Texture Diet Rico: Not applicable Wound Care Instructions: change dressing as needed, keep wound dry when showering Sutures/[place] Site: Keep sutures in, MD will remove in office. Activity/Weight Bearing Restrictions: Partial WB with brace on and locked. may unlock brace when seated and bend to 70 degrees - Labs/Radiology CBC Date: 02/08/17 (Weekly Q ) CMP Date: 02/08/17 (Weekly Q ) CPK Date: 02/08/17 (Weekly Q ) Call or Fax Lab and Imaging Results to: Dr. Gu [phone] - Follow Up Care Current Providers and Referrals: Chiara Patino [Primary Care Provider] - Gavin Gu MD [Medical Doctor] - 02/14/17 2:30 pm
--- NOTE | 2017-02-06 15:26 | ASMTCMCOM ---
CM Note CM Note Notes: Pt medically stable for d/c w [facility] [phone] and [facility] [phone]. eri will deliver medication to [facility] today by 1600. [facility] will start care tomorrow as pt next dose of antibiotics is 0900. Orders sent via [employer]. Date Signed: 02/06/2017 03:26 PM Electronically Signed By:BEV Pruitt
--- NOTE | 2017-02-07 12:10 | ASDISCHSUM ---
Discharge Information Plan Status:Home with Home Health Medically Cleared to Leave: Discharge Date:02/06/2017 04:49 PM CM D/C Disposition:Home Health Service ADT D/C Disposition:[id number] Projected Discharge Date:02/06/2017 11:00 AM Transportation at D/C: Discharge Delay Reason: Follow-Up Date:02/06/2017 11:00 AM Discharge Slot: Final Diagnosis: Placement Information Referral Type:*Home Health Care Services Referral ID:[id number] Provider Name:[facility] Address 1:[address] Phone Number: Address 2: Fax Number: City:[place] Selection Factors: State:[place] Patient Contact Information Contact Name:KARINA Relationship: Address:[address] Work Phone: [facility] Phone: State/Zip Code:[place] [address] Email: Financial Information Financial Class: Primary Plan Desc:[employer] Primary Plan Number:[id number] Secondary Plan Desc: Secondary Plan Number: Assessment Information [facility] CM Progress Note CM Note CM Note Notes: Pt here for removal of infected prosthesis (after knee repalcement in November 2016), will need 6 weeks IV ABX's- d/w Dr Gu. Pt lives at home in one apt with , Marina. PT recommending SNF as of yesterday. d/W pt and . Pt would much prefer to dc home; he feels he would do much better at home ( agrees), has good support of although she does work 4d/wk til 2:30 but he says he has other people around he can call if needed (neighbor and brother). They are open to [facility] and are willing to learn to administer IV ABX. Referral faxed to [facility] and spoke to [facility] who said they are able to deliver to his area. Pt lives in [place], [place]- closest larger town is [facility] (80 miles away). Referral also sent to [facility] (out of [place])and vm left to see if they could go to that area. Pt would need [facility] RN, PT most likely. CM w/f. Date Signed: 02/04/2017 02:32 PM Electronically Signed By:Luisa Del Cid RN [facility] CM Progress Note CM Note CM Note Notes: [facility] can accept pt for [facility]. Of note: No other [facility] services area: [facility] do not service [place]. Date Signed: 02/05/2017 10:20 AM Electronically Signed By:BEV Pruitt [facility] CM Progress Note CM Note CM Note Notes: [phone] and [facility] [phone]. [facility] will deliver medication to [facility] today by 1600. [place] will start care tomorrow as pt next dose of antibiotics is 0900. Orders sent via [facility]. Date Signed: 02/06/2017 03:26 PM Electronically Signed By:BEV Pruitt Intervention Information
== END 2017-02-06 16:49 | disposition home health service (06) | DRG 465 ==
LOC: F3N 12:26
PROVIDERS: ADMIT Orthopaedic Surgery; ATTEND Orthopaedic Surgery
PROC: 0SPC0JZ Removal of Synthetic Substitute from Right Knee Joint, Open Approach (ICD-10-PCS; principal; 2017-02-02 14:30)
PROC: 0SHC08Z Insertion of Spacer into Right Knee Joint, Open Approach (ICD-10-PCS; principal; 2017-02-02 14:30)
DX: T84.53XA Infection and inflammatory reaction due to internal right knee prosthesis, initial encounter (principal); N40.0 Benign prostatic hyperplasia without lower urinary tract symptoms; M10.9 Gout, unspecified; E03.9 Hypothyroidism, unspecified; E78.00 Pure hypercholesterolemia, unspecified; E11.9 Type 2 diabetes mellitus without complications; Z79.84 Long term (current) use of oral hypoglycemic drugs; Z23 Encounter for immunization
CPT/HCPCS: 97116-GP; 97162-GP; 97166-GO; 97530-GO; 97530-GP; 97535-GO; C1713; G0008; G0009; J0171; J0878; J1650; J1885; J2001; J2250; J2405; J2550; J2704; J2765; J2795; J3010; J3370; L1832; Q9968

== ENCOUNTER 2017-04-10 11:59 | Inpatient (IN) | payer OTHER ==
--- NOTE | 2017-04-10 05:33 | GHP ---
[f rep st] HISTORY AND PHYSICAL Amended report CURRENT COMPLAINT: Right knee pain. HISTORY OF PRESENT ILLNESS: The patient is a 61-year-old male, who had previously undergone a right hemiarthroplasty that got infected. He had an explant done nearly 2 months ago, with cement antibiotic spacers placed in the knee, and was on IV antibiotics. The IV antibiotics were discontinued. He has had multiple samples taken from the knee, with no bacteria growing from the knee. His labs have all stabilized. He is here for replantation. ALLERGIES: Include penicillin. CURRENT MEDICATIONS: Allopurinol, cyclobenzaprine, levothyroxine, metformin, pantoprazole, rosuvastatin, sucralfate, and tamsulosin. PAST MEDICAL HISTORY: Prior medical problems include BPH, gout, hypothyroidism , high cholesterol, and type 2 diabetes. PAST SURGICAL HISTORY: Prior surgeries include a right total hip arthroplasty with subsequent I and D x2, a left shoulder lipoma excision, spine surgery, and a right knee arthroscopy. PHYSICAL EXAMINATION: EYES: Pupils equal, round, and reactive to light. CHEST : Clear to auscultation. HEART: Regular rate and rhythm. ABDOMEN: Soft and nontender. EXTREMITIES: His right knee has a well healed scar on the anterior portion of the knee, with limited range of motion to the knee. ASSESSMENT AND PLAN: Patient is status post a right total knee explant. The plan is to take him to the operating room to undergo a removal of spacers and to replace his knee. /[id number]/MODL Add acc#, 04/10/17, praveen CHRISTOPHER
[~2017-04-10 11:59] MED LIST: ACETAMINOPHEN 500 MG TAB PO ONE; CLINDAMYCIN 900 MG/DEXTROSE 50 ML IV ONE; ROPIVACAINE 0.2% 80 MG, EPINEPHrine 0.2 MG, KETOROLAC TROMETHAMINE 30 MG, morphINE 10 M... IU ONE; TRANEXAMIC ACID 3,000 MG in NS 50 ML IRR ONE
[2017-04-10] MEDS ORDERED: LIDOCAINE 1% 2 ML INJ ONE (12:39)
[2017-04-10] MEDS ORDERED: LR 1,000 ML IV ONE (12:53)
[2017-04-10] MEDS ORDERED: LIDOCAINE 1% 2 ML INJ ID PRN (12:53)
[2017-04-10] MEDS ORDERED: ACETAMINOPHEN 500 MG TAB ONE (13:07)
[2017-04-10] MEDS ORDERED: CLINDAMYCIN 900 MG/DEXTROSE/50 ML BAG IV ONE (13:10)
--- NOTE | 2017-04-10 15:56 | PDHPUP ---
History & Physical Update H&P update statement: This history and physical update is based on an assessment of the patient which was completed after admission or registration (within 24 hours), but prior to the surgery/procedure. H&P update: H&P reviewed & patient examined, no change in patient's condition since H&P completed
[2017-04-10] MEDS ORDERED: BUPIVACAINE 0.5% 30 ML SDV ONE (16:10)
[2017-04-10] MEDS ORDERED: MIDAZOLAM 2 MG/2 ML VIAL ONE (16:16)
[2017-04-10] MEDS ORDERED: fentaNYL 250 MCG/5 ML INJ ONE (16:17)
[2017-04-10] MEDS ORDERED: PROPOFOL 200 MG/20 ML VIAL ONE ×2 (16:18→16:28)
[2017-04-10] MEDS ORDERED: LIDOCAINE 2% 5 ML SDV ONE (16:20)
[2017-04-10] MEDS ORDERED: ROCURONIUM 100 MG/10 ML VIAL ONE (16:20)
[2017-04-10] MEDS ORDERED: THROMBIN (BOVINE) 5,000 UNIT VIAL TP ONE (16:25)
[2017-04-10] MEDS ORDERED: CALCIUM CHLORIDE 1 GM/10 ML INJ ONE (16:25)
[2017-04-10] MEDS ORDERED: MIDAZOLAM 2 MG/2 ML VIAL IVP ONE (16:30)
--- NOTE | 2017-04-10 16:30 | PDANEPAE ---
ANE Past Medical History - Cardiovascular History Hx Hypertension: No Hx Arrhythmias: No Hx Chest Pain: No Hx Coronary Artery / Peripheral Vascular Disease: No Hx CHF / Valvular Disease: No Hx Palpitations: No - Pulmonary History Hx COPD: No Hx Asthma/Reactive Airway Disease: No Hx Recent Upper Respiratory Infection: No Hx Oxygen in Use at Home: Yes O2 in Use at Home (L/minute): 2L Hx Sleep Apnea: Yes Sleep Apnea Screening Result - Last Documented: Positive - Neurologic History Hx Cerebrovascular Accident: No Hx Seizures: No Hx Dementia: No - Endocrine History Hx Diabetes: Yes Obesity: yes Endocrine History Comment: DM - METFORMIN. HYPOTHYROID - LEVOTHYROXINE - Renal History Hx Renal Disorders: No - Liver History Hx Hepatic Disorders: No - Neurological & Psychiatric Hx Hx Neurological and Psychiatric Disorders: Yes Neurological / Psychiatric History Comment: bilat numbness/neuropathy - Cancer History Hx Cancer: No - Congenital Disorder History Hx Congenital Disorders: No - GI History Hx Gastrointestinal Disorders: Yes Gastrointestinal History Comment: reflux, gerd - Other Health History Other Health History: anemia - Chronic Pain History Chronic Pain: Yes (R KNEE) - Surgical History Prior Surgeries: 10/30/2016 R TKA IN [employer]. 01/29/2017 I & D R KNEE IN [employer]. LUMBAR SURGERY. LIPOMA L SHOULDER. R KNEE SURG ANE Review of Systems Review of systems is: negative Review of Systems: - Exercise capacity METS (RN): 4 METS ANE Patient History - Allergies Allergies/Adverse Reactions: Penicillins Allergy (Severe, Verified 02/01/17 14:36) SWELLING & DIFF BREATHING codeine Allergy (Verified 04/10/17 13:04) a little nausea - Home Medications Home medications: home medication list seen and reviewed Home Medications: Cyclobenzaprine [Cyclobenzaprine HCl] 5 mg PO Q6 PRN 02/02/17 [Last Taken 21:00] Levothyroxine Sodium 25 mcg PO DAILY 02/02/17 [Last Taken 04/09/17 08:00] Magnesium Hydroxide [Milk of Magnesia] 30 ml PO DAILY PRN 02/02/17 [Last Taken 03/13/17] Pantoprazole Sodium [Protonix 40mg (*)] 40 mg PO DAILY 02/02/17 [Last Taken 05:00] Rosuvastatin Calcium [Crestor] 40 mg PO DAILY 02/02/17 [Last Taken 04/10/17 04: 00] Sucralfate [Carafate 1 GM (*)] 1 gm PO QID 02/02/17 [Last Taken 04/10/17 05:00] Tamsulosin HCl [Flomax 0.4 MG (*)] 0.4 mg PO DAILY 02/02/17 [Last Taken 08:00] metFORMIN HCL [Metformin HCl ER] 500 mg PO DAILY 02/02/17 [Last Taken 04/09/17 05:00] Allopurinol [Allopurinol 300 MG (RX)] 300 mg PO BID 03/29/17 [Last Taken 15:00] DAPTOmycin [Cubicin 500mg vial (*)] 720 mg IV DAILY 03/29/17 [Last Taken ] oxyCODONE IR [Oxycodone Ir (*)] 10 mg PO Q6HRS PRN 03/29/17 [Last Taken 04:00] traMADol [Ultram 50 mg (*)] 50 mg PO BID PRN 03/29/17 [Last Taken 04/10/17 05:00 ] - NPO status NPO Since - Liquids (Date): 04/10/17 NPO Since - Liquids (Time): 08:00 NPO Since - Solids (Date): 04/10/17 NPO Since - Solids (Time): 04:30 - Anes Hx Anes Hx: no prior problems - Smoking Hx Smoking Status: Never smoked - Family Anes Hx Family Hx Anesthesia Complications: NEG ANE Labs/Vital Signs - Vital Signs Blood Pressure: 131/93 Heart Rate: 103 Respiratory Rate: 20 O2 Sat (%): 92 Height: 182.88 cm Weight: 115.666 kg ANE Physical Exam - Airway Neck exam: FROM Mallampati Score: Class 2 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
[2017-04-10] MEDS ORDERED: PHENYLEPHRINE HCL 100 MCG/ML SYR ONE (16:48)
[2017-04-10] MEDS ORDERED: HYDROmorphONE/DILAUDID 2 MG/ML INJ ONE (17:33)
[2017-04-10] MEDS ORDERED: ONDANSETRON 4 MG/2 ML VIAL ONE (18:27)
[2017-04-10] MEDS ORDERED: PROMETHAZINE HCL 25 MG/ML INJ IVP PRN ×2 (19:49→20:17)
[2017-04-10] MEDS ORDERED: HYDROCODONE/APAP 5/325 TAB PO PRN (19:49)
[2017-04-10] MEDS ORDERED: METOCLOPRAMIDE 10 MG/2 ML VIAL IVP PRN ×2 (19:49→20:17)
[2017-04-10] MEDS ORDERED: LABETALOL HCL 5 MG/ML 20 ML MDV IVP PRN (19:49)
[2017-04-10] MEDS ORDERED: OXYCODONE/APAP 5/325 TAB PO PRN (19:49)
[2017-04-10] MEDS ORDERED: ALBUTEROL 3 ML DEYVIAL IH PRN (19:49)
[2017-04-10] MEDS ORDERED: LR 500 ML IV PRN (19:49)
[2017-04-10] MEDS ORDERED: HYDROmorphONE/DILAUDID 1 MG/ML INJ IVP PRN (19:49)
[2017-04-10] MEDS ORDERED: NALOXONE HCL 0.4 MG/ML INJ IVP PRN ×2 (19:49→19:50)
[2017-04-10] MEDS ORDERED: ACETAMINOPHEN 500 MG TAB PO PRN (19:49)
[2017-04-10] MEDS ORDERED: ONDANSETRON 4 MG/2 ML VIAL IVP PRN ×2 (19:49→20:17)
[2017-04-10] MEDS ORDERED: LABETALOL HCL 5 MG/ML 20 ML MDV ONE (19:52)
[2017-04-10] MEDS ORDERED: BISACODYL 10 MG SUPP PR PRN (20:17)
[2017-04-10] MEDS ORDERED: PROMETHAZINE HCL 25 MG SUPPR PR PRN (20:17)
[2017-04-10] MEDS ORDERED: TEMAZEPAM 15 MG CAP PO PRN (20:17)
[2017-04-10] MEDS ORDERED: TAPENTADOL HCL 50 MG TAB PO PRN (20:17)
[2017-04-10] MEDS ORDERED: ONDANSETRON DISINTEGRATING 4 MG TAB PO PRN (20:17)
[2017-04-10] MEDS ORDERED: DIPHENOXYLATE/ATROPINE LOMOTIL 1 TAB PO PRN (20:17)
[2017-04-10] MEDS ORDERED: diphenhydrAMINE 25 MG CAP PO PRN (20:17)
[2017-04-10] MEDS ORDERED: LACTULOSE 20 GM/30 ML UDCUP PO PRN (20:17)
[2017-04-10] MEDS ORDERED: MAGNESIUM HYDROXIDE 30 ML UDCUP PO PRN ×2 (20:17→20:22)
[2017-04-10] MEDS ORDERED: POLYETHYLENE GLYCOL 3350 17 GM PKT PO PRN (20:17)
--- NOTE | 2017-04-10 20:17 | POSTOPPROG ---
Post Op Note Date of Operation: 04/10/17 Surgeon: Maru Linder Assembler Dc Field Yoke: coltrain Anesthesia: GET(General Endotracheal), Other (Specify) Pre-op Diagnosis: r tkr infection Procedure: r knee spacer removal with revision tkr with quad snip and repair and kulkarni Inf/Abcess present in the surg proc area at time of surgery?: Yes Depth: Deep Incisional (Fascial) EBL: 100-500
[2017-04-10] MEDS ORDERED: CYCLOBENZAPRINE 5 MG PO PRN (20:22)
[2017-04-10] MEDS ORDERED: LR 1,000 ML IV SCH (20:30)
[2017-04-10] MEDS ORDERED: fentaNYL 100 MCG/2 ML INJ ONE (20:44)
[2017-04-10] MEDS: fentaNYL 100 MCG/2 ML INJ IVP PRN ×2 (20:45→20:59)
[2017-04-10] MEDS: oxyCODONE IR 5 MG TAB PO PRN (21:59)
[2017-04-10] MEDS: SENNOSIDES/DOCUSATE SODIUM TAB PO SCH (21:59)
[2017-04-10] MEDS: FAMOTIDINE 20 MG TAB PO SCH (21:59)
[2017-04-10] MEDS: ALLOPURINOL 300 MG TAB PO SCH (21:59)
[2017-04-10] MEDS: SUCRALFATE 1 GM TAB PO SCH (23:14)
[2017-04-10] MEDS: traMADol 50 MG TAB PO SCH (23:19)
[2017-04-10] MEDS: ACETAMINOPHEN 325 MG TAB PO SCH (23:19)
[2017-04-11] MEDS ORDERED: VANCOMYCIN 1.75 GM in D5W 500 ML IV ONE (01:30)
[2017-04-11] MEDS: oxyCODONE IR 5 MG TAB PO PRN ×7 (01:35→23:41)
[2017-04-11] MEDS: LEVOTHYROXINE 25 MCG TAB PO SCH (05:20)
[2017-04-11] MEDS: SUCRALFATE 1 GM TAB PO SCH ×4 (05:21→20:41)
[2017-04-11] MEDS: ACETAMINOPHEN 325 MG TAB PO SCH ×4 (05:21→23:40)
[2017-04-11] MEDS: traMADol 50 MG TAB PO SCH ×4 (05:22→23:41)
--- NOTE | 2017-04-11 05:33 | GOP ---
[f rep st] OPERATIVE REPORT DATE OF OPERATION: 04/10/2017 SURGEON: Maru Linder MD DEVELOPER DESIGNER: Jose Villela, CSFA, LSA, whose presence was medically necessary. ANESTHESIA: Endotracheal intubation plus adductor nerve block per Surgeon's request. PREOPERATIVE DIAGNOSIS: Status post a right total knee replacement infection. POSTOPERATIVE DIAGNOSIS: Status post a right total knee replacement infection. PROCEDURE PERFORMED: Right knee removal of antibiotic spacers, revision total knee replacement with quadriceps snip and repair as well as a patellar tendinoplasty. FINDINGS: INDICATIONS: This is a 61-year-old male who had previously undergone a right total knee arthroplasty that had gotten infected. It was removed, and cement spacers were put into place approximately 2 mo nths ago. He did an entire course of IV antibiotics. He has had 2 cultures taken since being off an tibiotics but had had no growth, and his labs have remained stable. We, therefore, decided to bring him to the operating room to take out the cement spacers, replace the total joint back into the knee. DESCRIPTION OF PROCEDURE: Patient brought to the operating room after the right side had been identi fied as the correct side by the patient, nurse, and physician. Once in the operating room, he was gi nereida an adductor canal block. He was then placed under general anesthesia using endotracheal intubati on. Once asleep, he had a tourniquet placed around the upper portion of the right thigh. The right lower extremity was sterilely prepped and draped in the usual fashion using a GSI solution. Once pre pped and draped, the limb was exsanguinated, tourniquet inflated to 250 mmHg. Using his prior anteri or incision, sharp dissection was carried down through the skin and subcutaneous layers, identifying the extensor mechanism below. He was noted to have very poor-quality tissue around the patellar tend on associated with his prior infection site with fibrinous tissue throughout the medial portion of hi s patellar tendon. A medial parapatellar incision was made. Secondary to the abundant amount of sca rring he had around his extensor mechanism, a quadriceps snip was performed in order to allow retract ion of the patella laterally. Once performed, it gave better access to the knee. The cement spacers were able to be removed in their entirety, and the bony edges were able to be cleaned. Once they had been thoroughly cleaned and washed, sequential broaches were placed within the tibial canal up to a size of 16 mm before achieving good chatter. Once in place, the reamer was left in place, and an end -cutting block was able to be passed over the tibial reamer in order to take 5 mm of bone off the end of the femur in order to freshen the bony edges. Once the bony edges had been freshened, a trial pl ate was put into place centered around the intramedullary pardeep. It was pinned into place. The pardeep wa s able to be removed, and a keel punch was able to be placed onto the tibial trial and a keel punch p assed through the tibial tray. All trials were then removed, and then a constructed trial complete w ith a stem was able to be put in place, noted to have good fit on the proximal portion of the tibia. The trial was then removed. Attention was turned to the femur. The femur also had sequential broac hes placed in the femoral canal up to a size 17, noted to fit securely. It was left in place. An en d-cutting guide was then placed on the end of the femur, freshening the edges, removing approximately 3 mm of bone. A size-6 four-in-one cutting block was then put into place over the intramedullary ro d. Once pinned into place, the intramedullary pardeep was removed, and the bone was freshened on its ant erior, posterior, and chamfer cuts. The box cut guide was then put into place anteriorly, and a sagi ttal saw was used to remove bone in order to accommodate the box cut associated with the distal femur . Once positioned, a trial femoral component and stem were put into place and noted to fit securely as well as a trial stem and tibial component with a trial liner put into place in order to ensure the re was adequate room in order to gain full extension across the knee. Once this was ensured, all par ts were removed from the femur and the tibia. All cut surfaces of bone were then thoroughly irrigate d with antibiotic solution using pulsatile lavage while cement was being mixed. Once cement was zully hy, it was placed on the proximal end of the tibia with a size-6 Triathlon total knee base plate with a 16 x 150 mm stem placed onto the tibial tray. It was put into place. Excess cement was removed u sing a [place] elevator. Cement was then placed on the posterior skids of the femoral component, and t hen cement was placed on the distal end of the femur and anterior portion of the femur with a size-6 right Triathlon total stabilizer femoral component attached to a 17 mm x 150 mm stem. It was put int o place. Excess cement removed using a [place] elevator. A trial liner was placed on the tibial tray, and the knee was brought to full extension under pressurized cement. Once cement had hardened, any excess cement that was found was debrided using a rongeur and osteotome. Multiple trials were placed on the tibial tray. We noted that a 16 mm polyethylene component fit best; therefore, a 16 mm polye thylene component was put into place with its stem put in through the polyethylene and locked to the tibial base plate. Once completed, the tourniquet was released at 119 minutes. A joint cocktail was injected in the posterior capsule along the periosteum of the femur and tibia, and tranexamic acid w as placed, irrigated through the wound in order to control bleeding. Once finished, a #2 FiberWire w as used to close the quadriceps snip as well as the superior and mid portions of the extensor mechani sm. The patellar tendon that was very fibrinous and necrotic was removed until achieving healthy tis marco a. A tendinoplasty was then performed, drawing soft tissue from the medial portion of the knee to meet the patellar tendon and recreate the extensor mechanism. This was also repaired using a #2 Fibe rWire. Once completed, plasma gel was injected into the intraarticular portion of the knee; 0 Vicryl and 2-0 Vicryl sutures were used to close the subcutaneous layers with plasma gel placed external to the extensor mechanism, and a 3-0 V-Loc suture in a running subcuticular stitch was used to close th e skin. The wound was dressed with Steri-Strips, Xeroform, 4 x 4's, wrapped in Kerlix. Leg was comp letely undraped in the operating room, tourniquet removed from the thigh, and an Ramana wrap placed arou nd the knee. The patient was then woken up, extubated, transferred onto a stretcher, and sent to rec overy room in good condition. TOURNIQUET TIME: 119 minutes. /[id number]/MODL
[2017-04-11 05:51] LABS: HEMATOCRIT 30.3 % (40.0-51.0); HEMOGLOBIN 9.9 g/dL (13.7-17.5)
[2017-04-11] MEDS ORDERED: DAPTOMYCIN IV SCH (09:00)
[2017-04-11] MEDS: ALLOPURINOL 300 MG TAB PO SCH ×2 (09:27→20:41)
[2017-04-11] MEDS: PANTOPRAZOLE SODIUM 40 MG TAB PO SCH (09:27)
[2017-04-11] MEDS: ROSUVASTATIN CALCIUM 40 MG TAB PO SCH (09:27)
[2017-04-11] MEDS: RIVAROXABAN 10 MG TAB PO SCH (09:28)
[2017-04-11] MEDS: SENNOSIDES/DOCUSATE SODIUM TAB PO SCH ×2 (09:28→20:41)
[2017-04-11] MEDS: FAMOTIDINE 20 MG TAB PO SCH ×2 (09:28→20:41)
[2017-04-11] MEDS: TAMSULOSIN HCL 0.4 MG CAP PO SCH (09:28)
[2017-04-11] MEDS: metFORMIN SR 500 MG TAB PO SCH (09:28)
--- NOTE | 2017-04-11 11:50 | PCMIDPN ---
Assessment/Plan: Assessment: Right knee prosthetic joint infection. Patient had his cultures grow Gram- positive pardeep historically but it was not identified. Patient was treated with 6 weeks of daptomycin. Now back for a reimplantation. Patient is postoperative from yesterday and he is doing well. No further antibiotics required. Will follow up as needed. Plan: 1. No further antibiotics required. 2. Will follow peripherally. 04/11/17 11:48 Subjective: Patient readmitted for joint reimplantation surgery. This happened yesterday without complication. Patient is sitting up in his chair in his hospital room. He has been ambulating around the rader. No fevers or chills. Objective: No antibiotics Vital Signs Temp Pulse Resp BP Pulse Ox 36.7 C 96 14 128/74 H 97 04/11/17 08:18 04/11/17 08:18 04/11/17 08:18 04/11/17 08:18 04/11/17 08:18 Microbiology 04/10/17 17:13 Gram Stain - Final Knee - Eswab 04/10/17 17:13 Gram Stain - Final Knee - Eswab Laboratory Results 04/11/17 05:08 04/10/17 04/11/17 04/12/17 05:59 05:59 05:59 Intake Total 3960 Output Total 450 Balance 3510 - Physical Exam General Appearance: WD/WN, alert, non-toxic Skin: normal color, warm/dry, No rash Neuro/Psych: alert, normal mood/affect, oriented x 3 ICD10 Worksheet Patient Problems: Problems Problem Status Onset Infection of implant Acute
--- NOTE | 2017-04-11 12:21 | SOAPPROG ---
SOAP Progress Note Assessment/Plan: Assessment: Plan: - recheck tomorrow - plan to d/c Sunday04/11/17 12:20 Subjective: Doing well, pain fairly well controlled, Objective: Vital Signs Temp Pulse Resp BP Pulse Ox 36.7 C 96 14 128/74 H 97 04/11/17 08:18 04/11/17 08:18 04/11/17 08:18 04/11/17 08:18 04/11/17 08:18 Microbiology 04/10/17 17:13 Gram Stain - Final Knee - Eswab 04/10/17 17:13 Gram Stain - Final Knee - Eswab Laboratory Results 04/11/17 05:08 04/10/17 04/11/17 04/12/17 05:59 05:59 05:59 Intake Total 3960 Output Total 450 Balance 3510 Dressing CDI, calf NT, neg Homman's, NVI - Time Spent With Patient Time Spent With Patient: 15 - Pending Discharge Pending Discharge Within 24 Hours: No Pending Discharge Within 48 Hours: Yes Pending Discharge Date: 04/13/17 Pending Discharge Time: 11:00 ICD10 Worksheet Patient Problems: Problems Problem Status Onset Infection of implant Acute
--- NOTE | 2017-04-11 16:16 | ASMTCMCOM ---
CM Note CM Note Notes: OT rec home, PT rec 24/hour supervision. Spoke with pt and who report pt will have supervision from but no supervision at this time for the 8 hours she is at work. Pt states he will call friends and family to see if they can assist w supervision. Pt will attend outpatient PT at the [facility] and is interested in an [facility] RN for dressing changes with [facility]; referral sent in [employer]. Pt reports he will likely d/c Sunday. CM to follow. Date Signed: 04/11/2017 04:16 PM Electronically Signed By:BEV Pruitt
[2017-04-11] MEDS: CYCLOBENZAPRINE 10 MG TAB PO PRN (23:41)
[2017-04-12] MEDS: oxyCODONE IR 5 MG TAB PO PRN ×7 (02:52→23:02)
[2017-04-12 05:23] LABS: HEMATOCRIT 30.3 % (40.0-51.0)
[2017-04-12] MEDS: LEVOTHYROXINE 25 MCG TAB PO SCH (06:03)
[2017-04-12] MEDS: SUCRALFATE 1 GM TAB PO SCH ×4 (06:03→21:44)
[2017-04-12] MEDS: traMADol 50 MG TAB PO SCH ×4 (06:04→23:02)
[2017-04-12] MEDS: ACETAMINOPHEN 325 MG TAB PO SCH ×4 (06:04→23:02)
[2017-04-12 08:11] VITALS: RESP 16
[2017-04-12] MEDS: ALLOPURINOL 300 MG TAB PO SCH ×2 (09:07→21:44)
[2017-04-12] MEDS: TAMSULOSIN HCL 0.4 MG CAP PO SCH (09:09)
[2017-04-12] MEDS: PANTOPRAZOLE SODIUM 40 MG TAB PO SCH (09:10)
[2017-04-12] MEDS: metFORMIN SR 500 MG TAB PO SCH (09:12)
[2017-04-12] MEDS: ROSUVASTATIN CALCIUM 40 MG TAB PO SCH (09:12)
[2017-04-12] MEDS: SENNOSIDES/DOCUSATE SODIUM TAB PO SCH ×2 (09:13→21:44)
[2017-04-12] MEDS: FAMOTIDINE 20 MG TAB PO SCH ×2 (09:13→21:44)
[2017-04-12] MEDS: RIVAROXABAN 10 MG TAB PO SCH (09:13)
[2017-04-12] MEDS: CYCLOBENZAPRINE 10 MG TAB PO PRN ×2 (11:54→21:44)
--- NOTE | 2017-04-12 12:28 | SOAPPROG ---
SANDY Progress Note Assessment/Plan: Assessment: Plan: - will stay tonight, d/c tomorrow am 04/11/17 12:20 04/12/17 12:27 Subjective: Doing well, no issues Objective: Vital Signs Temp Pulse Resp BP Pulse Ox 36.8 C 103 H 16 137/84 H 98 04/12/17 12:00 04/12/17 12:00 04/12/17 12:00 04/12/17 12:00 04/12/17 12:00 Microbiology 04/10/17 17:13 Gram Stain - Final Knee - Eswab Laboratory Results 04/12/17 04:55 04/11/17 04/12/17 04/13/17 05:59 05:59 05:59 Intake Total 3960 250 500 Output Total 450 1825 300 Balance 3510 -1575 200 wound cdi, calf NT, nvi - Time Spent With Patient Time Spent With Patient: 15 - Pending Discharge Pending Discharge Within 24 Hours: Yes Pending Discharge Within 48 Hours: No Pending Discharge Date: 04/13/17 Pending Discharge Time: 11:00 ICD10 Worksheet Patient Problems: Problems Problem Status Onset Infection of implant Acute
[2017-04-12 15:48] VITALS: O2SAT 97
[2017-04-13] MEDS: oxyCODONE IR 5 MG TAB PO PRN ×4 (02:48→11:50)
[2017-04-13] MEDS: traMADol 50 MG TAB PO SCH ×2 (06:18→11:47)
[2017-04-13] MEDS: LEVOTHYROXINE 25 MCG TAB PO SCH (06:18)
[2017-04-13] MEDS: SUCRALFATE 1 GM TAB PO SCH ×2 (06:18→11:47)
[2017-04-13] MEDS: ACETAMINOPHEN 325 MG TAB PO SCH ×2 (06:18→11:49)
[2017-04-13 07:48] VITALS: BP 113/67; PULSE 86; TEMP 98.7
--- NOTE | 2017-04-13 08:35 | PDIAF ---
- Diagnosis Code Status: Full Code - Medication Management Discharge Medications: Medications to Continue on Transfer Cyclobenzaprine [Cyclobenzaprine HCl] 5 mg PO Q6 PRN 02/02/17 [Last Taken 21:00] Levothyroxine Sodium 25 mcg PO DAILY 02/02/17 [Last Taken 04/09/17 08:00] Magnesium Hydroxide [Milk of Magnesia] 30 ml PO DAILY PRN 02/02/17 [Last Taken 03/13/17] Pantoprazole Sodium [Protonix 40mg (*)] 40 mg PO DAILY 02/02/17 [Last Taken 05:00] Rosuvastatin Calcium [Crestor] 40 mg PO DAILY 02/02/17 [Last Taken 04/10/17 04: 00] Sucralfate [Carafate 1 GM (*)] 1 gm PO QID 02/02/17 [Last Taken 04/10/17 05:00] Tamsulosin HCl [Flomax 0.4 MG (*)] 0.4 mg PO DAILY 02/02/17 [Last Taken 08:00] metFORMIN HCL [Metformin HCl ER] 500 mg PO DAILY 02/02/17 [Last Taken 04/09/17 05:00] Enoxaparin [Lovenox 40 MG (*)] 40 mg SC DAILY #14 syr 02/06/17 [Last Taken 03/13] Allopurinol [Allopurinol 300 MG (RX)] 300 mg PO BID 03/29/17 [Last Taken 15:00] oxyCODONE IR [Oxycodone Ir (*)] 10 mg PO Q6HRS PRN 03/29/17 [Last Taken 04:00] traMADol [Ultram 50 mg (*)] 50 mg PO BID PRN 03/29/17 [Last Taken 04/10/17 05:00 ] Acetaminophen [Tylenol 325mg (*)] 650 mg PO Q6HRS tab 04/13/17 [Last Taken Unknown] Rivaroxaban [Xarelto 10mg (*)] 10 mg PO DAILY tab 04/13/17 [Last Taken Unknown] oxyCODONE IR [Oxycodone Ir (*)] 5 - 10 mg PO Q3HRS PRN tab 04/13/17 [Last Taken Unknown] traMADol [Ultram 50 mg (*)] 50 mg PO Q6HRS tab 04/13/17 [Last Taken Unknown] Discharge Medications: Refer to the Discharge Home Medication list for PRN reason. - Orders Services needed: Home Care, Physical Therapy Home Care Face to Face: I certify that this patient was under my care and that I had the required [id number] encounter meeting the encounter requirements on the discharge day. My findings support the fact that the patient is homebound as defined in Home Care Face to Face Continued: CMS Chapter 7 Medicare Benefits Manual 30.1.1 , The condition of the patient is such that there exists a normal inability to leave home and consequently, leaving home would require a considerable and taxing effort. Diet Recommendation: no restrictions on diet Diet Texture: Regular Texture Diet Rico: Not applicable Wound Care Instructions: keep dressing on, may shower - Follow Up Care Current Providers and Referrals: CANDE CASTILLO [Other]
[2017-04-13] MEDS: ROSUVASTATIN CALCIUM 40 MG TAB PO SCH (09:39)
[2017-04-13] MEDS: metFORMIN SR 500 MG TAB PO SCH (09:40)
[2017-04-13] MEDS: SENNOSIDES/DOCUSATE SODIUM TAB PO SCH (09:40)
[2017-04-13] MEDS: ALLOPURINOL 300 MG TAB PO SCH (09:41)
[2017-04-13] MEDS: FAMOTIDINE 20 MG TAB PO SCH (09:41)
[2017-04-13] MEDS: TAMSULOSIN HCL 0.4 MG CAP PO SCH (09:41)
[2017-04-13] MEDS: PANTOPRAZOLE SODIUM 40 MG TAB PO SCH (09:42)
[2017-04-13] MEDS: RIVAROXABAN 10 MG TAB PO SCH (09:43)
--- NOTE | 2017-04-13 12:37 | ASMTCMCOM ---
CM Note CM Note Notes: Pt medically stable for d/c with [facility] and family support. Orders sent in [employer]. Date Signed: 04/13/2017 12:36 PM Electronically Signed By:BEV Pruitt
--- NOTE | 2017-04-13 14:03 | ASDISCHSUM ---
Discharge Information Plan Status:Home with Home Health Medically Cleared to Leave: Discharge Date:04/13/2017 01:00 PM CM D/C Disposition:Home Health Service ADT D/C Disposition:Home, Routine, Self-Care Projected Discharge Date:04/13/2017 11:00 AM Transportation at D/C:Family Discharge Delay Reason: Follow-Up Date:04/13/2017 11:00 AM Discharge Slot: Final Diagnosis: Placement Information Referral Type:*Home Health Care Services Referral ID:[id number] Provider Name:[facility] Address 1:[address] Phone Number: Address 2: Fax Number: City:[place] Selection Factors: State:[place] Patient Contact Information Contact Name:KARINA Relationship: Address:[address] Work Phone: City:[facility] [place] [facility] Phone: State/Zip Code:[place] [address] Email: Financial Information Financial Class:HMO and PPO Plans Primary Plan Desc:H[employer] [place] [employer] Primary Plan Number:[id number] Secondary Plan Desc: Secondary Plan Number: Assessment Information [facility] CM Progress Note CM Note CM Note Notes: OT rec home, PT rec 24/hour supervision. Spoke with pt and who report pt will have supervision from but no supervision at this time for the 8 hours she is at work. Pt states he will call friends and family to see if they can assist w supervision. Pt will attend outpatient PT at the [facility] and is interested in an [facility] RN for dressing changes with [facility]; referral sent in [facility]. Pt reports he will likely d/c Sunday. CM to follow. Date Signed: 04/11/2017 04:16 PM Electronically Signed By:BEV Pruitt [facility] Progress Note CM Note CM Note Notes: Pt medically stable for d/c with [facility] and family support. Orders sent in [employer]. Date Signed: 04/13/2017 12:36 PM Electronically Signed By:BEV Pruitt Intervention Information
== END 2017-04-13 13:00 | disposition home health service (06) | DRG 468 ==
LOC: F3N 11:59
PROVIDERS: ADMIT Orthopaedic Surgery; ATTEND Orthopaedic Surgery
PROC: 0SRC0J9 Replacement of Right Knee Joint with Synthetic Substitute, Cemented, Open Approach (ICD-10-PCS; principal; 2017-04-10 14:45)
PROC: 0LQQ0ZZ Repair Right Knee Tendon, Open Approach (ICD-10-PCS; principal; 2017-04-10 14:45)
PROC: 0SPC08Z Removal of Spacer from Right Knee Joint, Open Approach (ICD-10-PCS; principal; 2017-04-10 14:45)
DX: Z47.33 Aftercare following explantation of knee joint prosthesis (principal); Z89.521 Acquired absence of right knee; E11.9 Type 2 diabetes mellitus without complications; E03.9 Hypothyroidism, unspecified; N40.0 Benign prostatic hyperplasia without lower urinary tract symptoms; M10.9 Gout, unspecified; Z79.84 Long term (current) use of oral hypoglycemic drugs; Z88.0 Allergy status to penicillin
CPT/HCPCS: 97110-GP; 97116-GP; 97161-GP; 97165-GO; 97535-GO; C1713; J0171; J1170; J1885; J2250; J2370; J2405; J2704; J2795; J3010; J3370; J3490

== ENCOUNTER 2017-11-02 10:38 | Observation (INO) | payer BC, OTHER ==
--- NOTE | 2017-11-01 22:33 | GHP ---
[f rep st] PREOP HISTORY AND PHYSICAL CURRENT COMPLAINT: Right knee wound. HISTORY OF PRESENT ILLNESS: The patient is here for further evaluation. He had a right total knee a rthroplasty, which was revised secondary to infection, and he has had a persistent wound on the anter ior portion of his incision that has yet to heal satisfactorily. We decided to take him to the opera ting room in order to wash the area and do a primary closure of the wound. DRUG ALLERGIES: Include penicillin. MEDICATIONS: Include: Allopurinol, cyclobenzaprine, gabapentin, levothyroxine, metformin, omeprazol e, rosuvastatin, Sucralfate, tamsulosin, and tramadol. PRIOR MEDICAL PROBLEMS: Include reflux, gout, hypothyroidism, hyperlipidemia, type 2 diabetes. PRIOR SURGERIES: Include right total knee arthroplasty with a revision of a right total knee arthrop lasty, left shoulder lipoma excision, lumbar surgery. PHYSICAL EXAMINATION: EYES: Patient's pupils are equal, round, and reactive to light. CHEST: Rosita r. SKIN: He has a small 1 cm punctate wound to the middle of his incision that has . He has no pain to range of motion through the knee and 5/5 strength. ASSESSMENT/PLAN: The patient is status post delayed wound healing of the right knee. Operative plan is to take him to the operating room to undergo a closure of the wound. /[id number]/MODL
[2017-11-02] MEDS ORDERED: ceFAZolin 2 GM/DEXTROSE 100 ML IV ONE (12:35)
[2017-11-02] MEDS ORDERED: LR 1,000 ML IV ONE (12:36)
[2017-11-02 13:21] LABS: PLATELET COUNT 344 10^3/uL (150-400)
[2017-11-02] MEDS ORDERED: CLINDAMYCIN 600 MG/DEXTROSE 50 ML IV ONE (13:45)
--- NOTE | 2017-11-02 13:47 | POSTANESTH ---
Post Anesthetic Evaluation Cardiovascular Status: Normal, Stable Respiratory Status: Normal, Stable Level of Consciousness/Mental Status: Can Participate in Eval, Mildly Sleepy, Arousable Pain Control: Adequate, Prn Tx Ordered Nausea/Vomiting Control: Adequate, Prn Tx Ordered Complications Possibly Related to Anesthesia: None Noted
--- NOTE | 2017-11-02 13:50 | PDANEPAE ---
ANE History of Present Illness 62 yo male s/p R TKA with post-op infection, explant/treatment/re-implant, now with non-healing knee wound. ANE Past Medical History - Cardiovascular History Hx Hypertension: No Hx Arrhythmias: No Hx Chest Pain: No Hx Coronary Artery / Peripheral Vascular Disease: No Hx CHF / Valvular Disease: No Hx Palpitations: No - Pulmonary History Hx COPD: No Hx Asthma/Reactive Airway Disease: No Hx Recent Upper Respiratory Infection: No Hx Oxygen in Use at Home: No Hx Sleep Apnea: Yes Sleep Apnea Screening Result - Last Documented: Positive Pulmonary History Comment: HAI USES C-PAP INSTRUCTED TO BRING DOS - Neurologic History Hx Cerebrovascular Accident: No Hx Seizures: No Hx Dementia: No - Endocrine History Hx Diabetes: Yes Hypothyroid: Yes Hyperthyroid: No Obesity: severe Endocrine History Comment: NIDDM. HYPOTHYROID - Renal History Hx Renal Disorders: No - Liver History Hx Hepatic Disorders: No - Neurological & Psychiatric Hx Hx Neurological and Psychiatric Disorders: Yes Neurological / Psychiatric History Comment: bilat FOOT numbness/neuropathy - Cancer History Hx Cancer: No - Congenital Disorder History Hx Congenital Disorders: No - GI History GERD: moderate Hx Gastrointestinal Disorders: Yes Gastrointestinal History Comment: reflux, gerd - Other Health History Other Health History: anemia - Chronic Pain History Chronic Pain: Yes (R KNEE) - Surgical History Prior Surgeries: RT KNEE REVISION ARTHROPLASTY REMVL SPACER IN PLACE POST INFECTION 04/10/17. 10/30/2016 [place] 01/29/2017 I & D R [place]EE IN [place] LUMBAR SURGERY. LIPOMA L SHOULDER. R KNEE SURG ANE Review of Systems Review of Systems: - Exercise capacity METS (RN): 2 METS - Systems Constitutional: Reports: no symptoms Skin: Reports: other (non-healing, draining wound knee; pre-tibial erythema with skin changes) Neurological: Reports: paresthesia (B feet up to ankle) ANE Patient History - Allergies Allergies/Adverse Reactions: Penicillins Allergy (Severe, Verified 02/01/17 14:36) SWELLING & DIFF BREATHING codeine Allergy (Verified 04/10/17 13:04) a little nausea - Home Medications Home Medications: Tamsulosin HCl [Flomax 0.4 MG (*)] 0.4 mg PO DAILY 02/02/17 [Last Taken 11/02/17 ] Allopurinol [Allopurinol 300 MG (RX)] 300 mg PO BID 03/29/17 [Last Taken ] Clindamycin HCl [Clindamycin] 600 mg PO BID 10/31/17 [Last Taken 11/02/17] Cyclobenzaprine [Flexeril 10 MG (*)] 10 mg PO DAILY 10/31/17 [Last Taken ] Gabapentin [Neurontin 300 MG (*)] 900 mg PO BID 10/31/17 [Last Taken 11/02/17] Herbals/Supplements -Info Only 1 ea PO DAILY 10/31/17 [Last Taken 11/01/17] Levothyroxine [Synthroid 25 mcg (*)] 25 mcg PO DAILY06 10/31/17 [Last Taken ] Omeprazole 40 mg PO DAILY 10/31/17 [Last Taken 11/02/17] Rosuvastatin Calcium [Crestor 40mg (*)] 40 mg PO DAILY 10/31/17 [Last Taken ] metFORMIN SR [Glucophage XR 500 mg (*)] 500 mg PO DAILY 10/31/17 [Last Taken ] oxyCODONE IR [Oxycodone Ir (*)] 5 mg PO Q8HRS 10/31/17 [Last Taken 11/02/17 05: 30] traMADol [Ultram 50 mg (*)] 100 mg PO Q8HRS 10/31/17 [Last Taken 11/02/17 05:30] - NPO status NPO Since - Liquids (Date): 11/02/17 NPO Since - Liquids (Time): 11:43 NPO Since - Solids (Date): 11/01/17 NPO Since - Solids (Time): 22:30 - Anes Hx Anes Hx: no prior problems - Smoking Hx Smoking Status: Never smoked Marijuana use: Yes - Family Anes Hx Family Anes Hx: neg - N/A Family Hx Anesthesia Complications: NEG ANE Labs/Vital Signs - Labs Result Diagrams: 11/02/17 13:08 11/02/17 13:08 - Vital Signs Blood Pressure: 135/83 Heart Rate: 91 Respiratory Rate: 18 O2 Sat (%): 96 Height: 182.88 cm Weight: 136.078 kg ANE Physical Exam - Airway Neck exam: decreased ROM (baker) Mallampati Score: Class 3 Mouth exam: poor dentition - Pulmonary Pulmonary: other (coarse BS) - Cardiovascular Cardiovascular: regular rate and rhythym - ASA Status ASA Status: III ANE Anesthesia Plan Anesthesia Plan: general endotracheal anesthesia Regional Anesthesia: adductor canal FNB, POPC/PSR
[2017-11-02] MEDS ORDERED: traMADol 50 MG TAB PO ONE (13:56)
[2017-11-02] MEDS ORDERED: traMADol 50 MG TAB ONE (14:14)
[2017-11-02] MEDS ORDERED: BUPIVACAINE 0.25% 30 ML SDV ONE (14:47)
[2017-11-02] MEDS ORDERED: POLYMYXIN B SULFATE 500,000 UNIT/10 ML SYR IRR ONE ×2 (15:22→16:08)
[2017-11-02] MEDS ORDERED: ROCURONIUM 50 MG/5 ML VIAL ONE (15:48)
[2017-11-02] MEDS ORDERED: LIDOCAINE 2% 5 ML SDV ONE (15:48)
[2017-11-02] MEDS ORDERED: fentaNYL 100 MCG/2 ML INJ ONE ×3 (15:49→17:56)
[2017-11-02] MEDS ORDERED: PROPOFOL/EMULSION 500 MG/50 ML BOTTLE IV ONE (15:57)
[2017-11-02] MEDS ORDERED: ROPIVACAINE HCL 150 MG/30 ML INJ ONE (16:04)
[2017-11-02] MEDS ORDERED: oxyCODONE IR 5 MG TAB PO PRN (17:36)
[2017-11-02] MEDS ORDERED: ALBUTEROL 3 ML DEYVIAL IH PRN (17:36)
[2017-11-02] MEDS ORDERED: LR 500 ML IV PRN (17:36)
[2017-11-02] MEDS ORDERED: NALOXONE HCL 0.4 MG/ML INJ IVP PRN (17:36)
[2017-11-02] MEDS ORDERED: ACETAMINOPHEN 500 MG TAB PO PRN (17:36)
[2017-11-02] MEDS ORDERED: ONDANSETRON 4 MG/2 ML VIAL IVP PRN ×2 (17:36→17:59)
[2017-11-02] MEDS ORDERED: KETOROLAC 30 MG/1 ML SDV ONE (17:38)
[2017-11-02] MEDS ORDERED: oxyCODONE IR 5 MG TAB ONE (17:56)
[2017-11-02] MEDS: fentaNYL 100 MCG/2 ML INJ IVP PRN ×2 (17:57→18:17)
[2017-11-02] MEDS ORDERED: DIPHENOXYLATE/ATROPINE LOMOTIL 1 TAB PO PRN (17:59)
[2017-11-02] MEDS ORDERED: PROMETHAZINE HCL 25 MG/ML INJ IVP PRN (17:59)
[2017-11-02] MEDS ORDERED: POLYETHYLENE GLYCOL 3350 17 GM PKT PO PRN (17:59)
[2017-11-02] MEDS ORDERED: KETOROLAC 15 MG/1 ML SDV IVP ONE (17:59)
[2017-11-02] MEDS ORDERED: CYCLOBENZAPRINE 10 MG TAB PO PRN (17:59)
[2017-11-02] MEDS ORDERED: PROMETHAZINE HCL 25 MG SUPPR PR PRN (17:59)
[2017-11-02] MEDS ORDERED: LACTULOSE 20 GM/30 ML UDCUP PO PRN (17:59)
[2017-11-02] MEDS ORDERED: MAGNESIUM HYDROXIDE 30 ML UDCUP PO PRN (17:59)
[2017-11-02] MEDS ORDERED: METOCLOPRAMIDE 10 MG/2 ML VIAL IVP PRN (17:59)
[2017-11-02] MEDS ORDERED: TEMAZEPAM 15 MG CAP PO PRN (17:59)
[2017-11-02] MEDS ORDERED: diphenhydrAMINE 25 MG CAP PO PRN (17:59)
[2017-11-02] MEDS ORDERED: BISACODYL 10 MG SUPP PR PRN (17:59)
[2017-11-02] MEDS ORDERED: ONDANSETRON DISINTEGRATING 4 MG TAB PO PRN (17:59)
--- NOTE | 2017-11-02 17:59 | POSTOPPROG ---
Post Op Note Date of Operation: 11/02/17 Surgeon: Maru Linder Anesthesiologist: ceferino Anesthesia: LMA, Other (Specify) Pre-op Diagnosis: r knee wound dehiscence Procedure: i&d r knee Inf/Abcess present in the surg proc area at time of surgery?: Yes Depth: Deep Incisional (Fascial) EBL: 50-100
[2017-11-02] MEDS ORDERED: LR 1,000 ML IV SCH (18:00)
--- NOTE | 2017-11-02 19:13 | GOP ---
[f rep st] OPERATIVE REPORT DATE OF OPERATION: 11/02/2017 SURGEON: Maru Linder MD ANESTHESIA: By LMA plus adductor canal nerve block, per surgeon's request. PREOPERATIVE DIAGNOSIS: Right knee delayed wound closure. POSTOPERATIVE DIAGNOSIS: Right knee delayed wound closure. PROCEDURE PERFORMED: Right knee irrigation and debridement. FINDINGS: INDICATIONS: This is a 62-year-old male with a complex history regarding his right knee. He previou sly, approximately 6 months ago, underwent a right total knee revision for infection. He has had a w ound that continues to struggle to heal. He has no fever. No signs of infection, no erythema within the knee, and no true drainage around the knee. He wishes to have surgery in order to resolve the p roblem. DESCRIPTION OF PROCEDURE: Patient was brought to the operating room after the right side had been id entified as correct side by the patient, nurse, and physician. Once in the operating room, he was gi nereida an adductor canal nerve block and then placed under general anesthesia using LMA. Once asleep, a tourniquet was placed around the upper portion of the right thigh and the right lower extremity ster ilely prepped and draped in the usual fashion using GSI solution. Once prepped and draped, the knee was aspirated, and clear blood-tinged fluid was sent to the lab for Gram stains and culture and sensi tivities. The leg was then elevated for 2 minutes. Tourniquet was inflated to 250 mmHg. An incisio n was made using the old scar with an ellipse made around the area of the abundant scar tissue in the area of poor healing. Sharp dissection was carried down through the skin and subcutaneous layer selena n on the extensor mechanism below. Sharp dissection was carried through the subcutaneous tissue onto the extensor mechanism. He was found to have fatty tissue within the area that was debrided. He di d have an area of scar tissue directly around the area of extensor mechanism that was debrided. He d id have some scar tissue overlying this. It was vigorously debrided and finally gaining entrance int o the knee joint itself. There was abundant amount of synovium, but no purulence noted. The wound a nd the knee were thoroughly irrigated with 3 L of antibiotic solution using a bulb syringe. Once com pleted, #2 FiberWire was woven into the extensor mechanism area in order to close the area. Once get ting a good seal across it, 0 Vicryl suture was used for the deep subcutaneous layers and 2-0 nylon s uture in a vertical mattress type stitch was used to close the skin. Tourniquet was deflated at 50 minutes. The wound was dressed with Xeroform, 4 x 4's, wrapped in Kerl ix. Leg was completely undraped in the operating room, Ramana wrap placed around the knee, and tourniqu et removed from the thigh. He was then woken up, extubated, transferred onto a stretcher. He had a long leg immobilizer locked at 0 degrees placed on his right lower extremity. He was then sent to re covery room in good condition. TOURNIQUET TIME: 50 minutes. /[id number]/MODL
[2017-11-02] MEDS: ACETAMINOPHEN 325 MG TAB PO SCH ×2 (21:27→23:27)
[2017-11-02] MEDS: oxyCODONE IR 5 MG TAB PO PRN (21:33)
[2017-11-02] MEDS: FAMOTIDINE 20 MG TAB PO SCH (21:33)
[2017-11-02] MEDS: SENNOSIDES/DOCUSATE SODIUM TAB PO SCH (21:34)
[2017-11-02] MEDS: VANCOMYCIN 1.25 GM in NS 250 ML IV SCH (22:43)
[2017-11-03] MEDS: oxyCODONE IR 5 MG TAB PO PRN ×4 (00:40→09:39)
[2017-11-03] MEDS: VANCOMYCIN 1.25 GM in NS 250 ML IV SCH (05:38)
[2017-11-03] MEDS: ACETAMINOPHEN 325 MG TAB PO SCH ×2 (05:39→11:48)
[2017-11-03 07:14] VITALS: BP 117/71
[2017-11-03] MEDS: FAMOTIDINE 20 MG TAB PO SCH (08:49)
[2017-11-03] MEDS: SENNOSIDES/DOCUSATE SODIUM TAB PO SCH (08:49)
[2017-11-03] MEDS ORDERED: RIVAROXABAN 10 MG TAB PO SCH (09:00)
--- NOTE | 2017-11-03 10:25 | PDHOMEO2F ---
Home Oxygen Face to Face Home Orders: I certify that a physician or a nurse practitioner or physician's front desk assistant has had a [id number] encounter with this patient on the date of this order due to the diagnosis listed, which relates to the primary reason the patient requires home oxygen. Alternative treatments have been tried, or considered, and deemed ineffective. It is anticipated that supplemental oxygen will result in improvement with treatment. Home oxygen qualifying diagnosis: post op atelectasis SpO2 on room air (%): 83 Frequency of home oxygen needed: continuous Home oxygen liters per minute: 2l Home oxygen delivery device: nasal cannula Concentrator: Yes E-tanks for mobility and back up: Yes If ordering portable O2, is the patient mobile in the home?: Yes I certify that, based on these findings, the home oxygen is medically necessary for this patient for the following length of time. Length of time home oxygen needed: 1 week
--- NOTE | 2017-11-03 17:47 | ASDISCHSUM ---
Discharge Information Plan Status:Home with No Needs Medically Cleared to Leave:11/03/2017 Discharge Date:11/03/2017 12:51 PM CM D/C Disposition:Home, Routine, Self-Care ADT D/C Disposition:Home, Routine, Self-Care Projected Discharge Date:11/03/2017 12:51 PM Transportation at D/C:Family Discharge Delay Reason: Follow-Up Date:11/03/2017 12:51 PM Discharge Slot:2 - 12:01 pm - 18:00 pm Final Diagnosis:s/p right knee arthroplasty revised secondary to infection, I&D, right knee wound Placement Information Patient Contact Information Contact Name:KARINA Relationship: Address:[address] Work Phone: Roman:ANGEL Merlos Phone: [facility]/Zip Code:[place] [address] Email: Financial Information Financial Class:HMO and PPO Plans Primary Plan Desc:[employer] [employer] Primary Plan Number:[id number] Secondary Plan Desc: Secondary Plan Number: Assessment Information [facility] Progress Note CM Note CM Note Notes: Reviewed chart. Pt admitted for an I&D of a non-healing right knee wound. Pt is s/p a right knee arthroplasty with revision secondary to infection. History includes gout, hypothyroid, hyperlipidemia and diabetes. Pt lives with his . Per MD notes, pt to discharge home independently with home oxygen and family support. No IM signed, not applicable. Pt to follow up as directed. CM available for any further issues or concerns. Discharge Plan: Home independent with family support and home oxygen Date Signed: 11/03/2017 05:47 PM Electronically Signed By:Dianne Collazo RN Intervention Information
== END 2017-11-03 12:51 | disposition home or self-care (01) ==
LOC: F3N 12:15
PROVIDERS: ADMIT Orthopaedic Surgery; ATTEND Orthopaedic Surgery
DX: T84.89XA Other specified complication of internal orthopedic prosthetic devices, implants and grafts, initial encounter (principal); M65.9 Synovitis and tenosynovitis, unspecified; E11.9 Type 2 diabetes mellitus without complications; E03.9 Hypothyroidism, unspecified; K21.9 Gastro-esophageal reflux disease without esophagitis; G47.33 Obstructive sleep apnea (adult) (pediatric); Z79.84 Long term (current) use of oral hypoglycemic drugs; Z96.651 Presence of right artificial knee joint; Z88.0 Allergy status to penicillin
CPT/HCPCS: 10160; 11042; 97162; 97165; G0378; J1885; J2704; J2795; J3010; J3370; L1832